=== PATIENT | male | born 1980 | race Caucasian/White ===

== ENCOUNTER 2016-09-12 01:03 | Observation (INO) | payer OTHER ==
[2016-09-12] MEDS ORDERED: Aspirin Low Dose CHEW TAB* 81 MG PO ONE (01:16)
[2016-09-12 01:49] LABS: Hematocrit 43 % (42-52); Hemoglobin 14.7 g/dl (14.0-18.0); Mean Corpuscular HGB Conc 34 g/dl (31-36); Mean Corpuscular Hemoglobin 29 pg (27-31); Mean Corpuscular Volume 84 fL (80-94); Mean Platelet Volume 9 um3 (7.4-10.4); Red Blood Count 5.12 10^6/ul (4.0-5.4); Red Cell Distribution Width 12 % (10.5-15); White Blood Count 12.2 10^3/ul (3.5-10.8)
[2016-09-12 01:50] LABS: Add Diff/Slide Review? Slide Review Added
[2016-09-12 02:08] LABS: Albumin 4.4 g/dL (3.2-5.2); BUN/Creatinine Ratio 16.3 (8-20); Calcium 10.1 mg/dL (8.6-10.3); EGFR African American 121.1 (>60); EGFR Non-African American 94.2 (>60); Globulin 2.9 g/dL (2-4); Potassium 4.1 mmol/L (3.5-5.0); Total Bilirubin 1.2 mg/dL (0.2-1.0); Total Protein 7.3 g/dL (6.4-8.9)
[2016-09-12 02:15] LABS: Neutrophil % 87 % (38-83); Reactive Lymph % 3 % (0-6); Troponin I 0.05 ng/mL (<0.04)
[2016-09-12 02:16] LABS: RBC Morphology Normal (Normal)
[2016-09-12] MEDS ORDERED: levETIRAcetam TAB* 500 MG PO ONE (02:36)
--- NOTE | 2016-09-12 02:40 | HP ---
H&P (Free Text) History and Physical: PCP: none Date/Time of Evaluation: 09/12/2016 0240 CC: chest pain HPI: Mr Sauer is a 36YO male HX TBI, ataxia, & seizure disorder who was walking in the snow from [facility] to [facility] when he developed R-sided mildly sharp chest pain that moved to the L-side, but was non-radiating. He had mild SOB & nausea, but no palpitations or light-headedness. The pain was worse with inspiration. He has no HX of similar. ED evaluation shows a benign ECG. Negative CXR. Labs are notable for WBCs of 12k 77% neutrophils, troponin of 0.05, and a negative D-dimer. While in the ED he had a sudden burst of anger when he asked an aide for an emesis basin and she have him a blue emesis bag which he then threw on the floor apparently being unsatisfied with it. The aide turned and left as he was yelling calling her a racist claiming discrimination for being disabled. 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 Bupropion HCl [Wellbutrin Sr] 200 mg PO 09/12/16 Divalproex Sodium [Depakote] 500 mg PO 09/12/16 Keppra 500 09/12/16 Levothyroxine TAB* [Synthroid TAB*] 75 mcg PO DAILY 09/12/16 SocHx: 1/2PPD cigarettes, occasional cigar, occasional alcohol, HX cocaine & marijuana abuse; lives in a motel, released from nursing home late last year; full code FamHx: no early-onset CAD/CVA ROS: as above, otherwise reviewed and all were negative Constitutional: NAD, normally developed, well-nourished, overweight white male vitals: Vital Signs Temp 37.6 C 09/12/16 01:11 Pulse 98 09/12/16 01:15 Resp 21 09/12/16 01:11 BP 130/82 09/12/16 01:11 Pulse Ox 99 09/12/16 01:11 Intake & Output 09/11/16 09/11/16 09/12/16 11:59 23:59 11:59 Weight 95.254 kg HEENM: atraumatic; sclera/conjunctiva: non-icteric/clear; hearing: clinically intact; oropharynx: clear Neck: soft tissue: non-tender; thyroid: normal Pulmonary: clear to auscultation bilaterally, good aeration, no accessory muscle use CV: RR/RR, normal S1S2, no carotid bruit, no jugular venous distention, 2+ B DP/ PT, no edema Abdominal: soft, non-distended, non-tender, no rebound/guarding/rigidity, normoactive bowel sounds, no hepatosplenomegaly or masses, no costovertebral angle tenderness Musculoskeletal: general: grossly intact Integumental: normal appearance and texture of exposed skin Neurological coordination BUE tremor & ataxic movements Psychiatric orientation: AA&O to PPS affect: calm mood: cooperative eye contact: good content: reliable responses: timely insight: fair Testing: Lab Results 09/12/16 09/12/16 09/12/16 Range/Units 01:30 01:30 01:30 WBC 12.2 H (3.5-10.8) 10^3/ul RBC 5.12 (4.0-5.4) 10^6/ul Hgb 14.7 (14.0-18.0) g/dl Hct 43 (42-52) % MCV 84 (80-94) fL MCH 29 (27-31) pg MCHC 34 (31-36) g/dl RDW 12 (10.5-15) % Plt Count 174 (150-450) 10^3/ul MPV 9 (7.4-10.4) um3 Neut % (Auto) 77.8 (38-83) % Lymph % (Auto) 12.1 L (25-47) % Swisher % (Auto) 9.7 H (1-9) % Eos % (Auto) 0.1 (0-6) % Baso % (Auto) 0.3 (0-2) % Absolute Neuts (auto) 9.5 H (1.5-7.7) 10^3/ul Absolute Lymphs (auto) 1.5 (1.0-4.8) 10^3/ul Absolute Monos (auto) 1.2 H (0-0.8) 10^3/ul Absolute Eos (auto) 0 (0-0.6) 10^3/ul Absolute Basos (auto) 0 (0-0.2) 10^3/ul Absolute Nucleated RBC 0.01 10^3/ul Neutrophils % 87 H (38-83) % Lymphocytes % 5 L (25-47) % Reactive Lymphs % 3 (0-6) % Monocytes % 5 (0-13) % Nucleated RBC % 0 Normal RBC Morphology Normal (Normal) D-Dimer, Quantitative < 200 (Less Than 230) ng/mL Sodium 134 (133-145) mmol/L Potassium 4.1 (3.5-5.0) mmol/L Chloride 98 L (101-111) mmol/L Carbon Dioxide 27 (22-32) mmol/L Anion Gap 9 (2-11) mmol/L BUN 15 (6-24) mg/dL Creatinine 0.92 (0.67-1.17) mg/dL Est GFR ( Amer) 121.1 (>60) Est GFR (Non-Af Amer) 94.2 (>60) BUN/Creatinine Ratio 16.3 (8-20) Glucose 80 (70-100) mg/dL Lactic Acid (0.5-2.0) mmol/L Calcium 10.1 (8.6-10.3) mg/dL Total Bilirubin 1.20 H (0.2-1.0) mg/dL AST 24 (13-39) U/L ALT 14 (7-52) U/L Alkaline Phosphatase 49 (34-104) U/L Troponin I 0.05 H* (<0.04) ng/mL B-Natriuretic Peptide ( - 100) pg/mL Total Protein 7.3 (6.4-8.9) g/dL Albumin 4.4 (3.2-5.2) g/dL Globulin 2.9 (2-4) g/dL Albumin/Globulin Ratio 1.5 (1-3) 09/12/16 09/12/16 Range/Units 01:30 01:30 WBC (3.5-10.8) 10^3/ul RBC (4.0-5.4) 10^6/ul Hgb (14.0-18.0) g/dl Hct (42-52) % MCV (80-94) fL MCH (27-31) pg MCHC (31-36) g/dl RDW (10.5-15) % Plt Count (150-450) 10^3/ul MPV (7.4-10.4) um3 Neut % (Auto) (38-83) % Lymph % (Auto) (25-47) % Swisher % (Auto) (1-9) % Eos % (Auto) (0-6) % Baso % (Auto) (0-2) % Absolute Neuts (auto) (1.5-7.7) 10^3/ul Absolute Lymphs (auto) (1.0-4.8) 10^3/ul Absolute Monos (auto) (0-0.8) 10^3/ul Absolute Eos (auto) (0-0.6) 10^3/ul Absolute Basos (auto) (0-0.2) 10^3/ul Absolute Nucleated RBC 10^3/ul Neutrophils % (38-83) % Lymphocytes % (25-47) % Reactive Lymphs % (0-6) % Monocytes % (0-13) % Nucleated RBC % Normal RBC Morphology (Normal) D-Dimer, Quantitative (Less Than 230) ng/mL Sodium (133-145) mmol/L Potassium (3.5-5.0) mmol/L Chloride (101-111) mmol/L Carbon Dioxide (22-32) mmol/L Anion Gap (2-11) mmol/L BUN (6-24) mg/dL Creatinine (0.67-1.17) mg/dL Est GFR ( Amer) (>60) Est GFR (Non-Af Amer) (>60) BUN/Creatinine Ratio (8-20) Glucose (70-100) mg/dL Lactic Acid 1.4 (0.5-2.0) mmol/L Calcium (8.6-10.3) mg/dL Total Bilirubin (0.2-1.0) mg/dL AST (13-39) U/L ALT (7-52) U/L Alkaline Phosphatase (34-104) U/L Troponin I (<0.04) ng/mL B-Natriuretic Peptide 16 ( - 100) pg/mL Total Protein (6.4-8.9) g/dL Albumin (3.2-5.2) g/dL Globulin (2-4) g/dL Albumin/Globulin Ratio (1-3) ECG, personally reviewed: NSR rate 93, no ischemia CXR, personally reviewed: no acute process Impression: 36YO male HX TBI/8month coma, seizure disorder presents with exertional chest pain & elevated troponin DIAGNOSIS & PLAN Primary chest pain r/o ACS : aspirin : no beta cedric 2nd cocaine : supplemental oxygen : trend troponin : telemetry : if no significant elevation in troponin or ECG changes, would not pursue inpatient stress test : supportive care Secondary TBI w/ ataxia : no acute issues seizure disorder : continue levetiracetam & divalproex once reconciled hypothyroidism : continue levothyroxine once reconciled Admission Rational: CDU observation for r/o ACS DVTp: ISABELLE Code Status: full
[2016-09-12] MEDS ORDERED: Nicotine Inhaler* 10 MG AMP INH PRN (02:56)
[2016-09-12] MEDS ORDERED: Albuterol 2.5 MG/3 ML NEB.SOL* (0.083%) INH PRN (03:56)
[2016-09-12] MEDS ORDERED: Acetaminophen TAB* 325 MG PO PRN (03:56)
[2016-09-12] MEDS ORDERED: Mouth Piece, Nicotine* 1 EACH CARTRIDGE INH ONE (04:00)
[2016-09-12 04:26] VITALS: BP 100/60
[2016-09-12 05:41] LABS: Hematocrit 41 % (42-52); Hemoglobin 14.2 g/dl (14.0-18.0); Mean Corpuscular HGB Conc 35 g/dl (31-36); Mean Corpuscular Hemoglobin 29 pg (27-31); Mean Corpuscular Volume 83 fL (80-94); Mean Platelet Volume 9 um3 (7.4-10.4); Red Blood Count 4.91 10^6/ul (4.0-5.4); Red Cell Distribution Width 13 % (10.5-15); White Blood Count 10.6 10^3/ul (3.5-10.8)
--- NOTE | 2016-09-12 07:55 | RAD ---
HISTORY: Chest pain, cough, CHF, pneumonia COMPARISONS: None VIEWS: 2: Frontal dual-energy and lateral views of the chest. FINDINGS: CARDIOMEDIASTINAL SILHOUETTE: The cardiomediastinal silhouette is normal. MONTRELL: The montrell are normal. PLEURA: The costophrenic angles are sharp. No pleural abnormalities are noted. LUNG PARENCHYMA: The lungs are clear. ABDOMEN: The upper abdomen is clear. There is no subphrenic gas. BONES AND SOFT TISSUES: No bone or soft tissue abnormalities are noted. OTHER: None. IMPRESSION: NO ACTIVE CARDIOPULMONARY DISEASE.
[2016-09-12] MEDS ORDERED: Aspirin Low Dose CHEW TAB* 81 MG PO SCH (09:00)
--- NOTE | 2016-09-12 09:26 | PN ---
Subjective Date of Service: 09/12/16 Interval History: The patient was very upset before I entered the room. Two hospital security guards were standing outside his room. He complained about not getting eggs for breakfast (his tray hadn't arrived yet) and that he was being discriminated against. Objective Active Medications: Acetaminophen (Tylenol Tab*) 650 mg PO Q6H PRN PRN Reason: FEVER/PAIN Albuterol (Ventolin 2.5 Mg/3 Ml Neb.Danica*) 2.5 mg INH Q2H PRN PRN Reason: SOB/WHEEZING Aspirin (Aspirin Low Dose Tab*) 81 mg PO DAILY KAMRAN Nicotine (Nicotine Inhaler*) 10 mg INH Q2H PRN PRN Reason: CRAVING Last Admin: 09/12/16 03:41 Dose: 10 mg Vital Signs 09/12/16 09/12/16 09/12/16 02:30 03:00 03:55 Temperature 97.7 F Pulse Rate 85 82 86 Respiratory 29 20 Rate Blood Pressure 93/48 97/76 100/60 (mmHg) O2 Sat by Pulse 94 94 94 Oximetry Oxygen Devices in Use Now: None Appearance: Alert, standing in his room. Agitated and angry. Neurological: Alert and Oriented x 3, NL Sensation, - - Ataxic in arms and legs. Result Diagrams: 09/12/16 05:24 09/12/16 01:30 Assess/Plan/Problems-Billing Assessment: - Patient Problems (1) Chest pain Current Visit: Yes Status: Acute Code(s): R07.9 - CHEST PAIN, UNSPECIFIED SNOMED Code(s): 15291957 Comment: Early repolarization on two ECG's. Troponins 0.05, 0.03, 0.03. Doubt sx's are cardiac in origin but should have outpt fup. Unfortunately he stated he didn't have a PCP and wouldn't continue the conversation along the lines of his fup. He is signing out AMA. (2) TBI (traumatic brain injury) Current Visit: Yes Status: Acute Code(s): S06.9X9A - UNSP INTRACRANIAL INJURY W LOC OF UNSP DURATION, INIT SNOMED Code(s): 282629452 Comment: Ataxia, seizure disorder, irritability. Status and Disposition: Pt signed out AMA.
[2016-09-12 11:12] LABS: TSH (Thyroid Stimulating Horm) 0.1 mcIU/mL (0.34-5.60)
--- NOTE | 2016-09-12 23:18 | DS ---
DISCHARGE SUMMARY: DATE OF ADMISSION: DATE OF DISCHARGE: 09/12/16 HISTORY: This is a 36-year-old man who was walking in heavy snow from [facility] [address] [facility] [address] [facility] [address] to [facility] and developed right-sided mildly sharp chest pain that moved to the left side. It was nonradiating. The history was detailed in the admission note. The patient was admitted to the telemetry unit. EKGs were consistent with early repolarization, he had two of them, they were certainly not diagnostic of coronary disease by any means. He had 3 troponin levels which were 0.05, 0.03, and 0.03. When I went to see him in the morning, two security personnel were already standing outside the room. He was standing by the bed very agitated and angry. He was upset he did not get eggs for breakfast. His breakfast tray, in fact, not even been delivered yet as this was a little early. He stated he had no primary care physician and all his medications were through the mental health clinic. He was not interested in discussing followup plans with me at all. The patient signed out against medical advice. FINAL DIAGNOSES: 1. Chest pain. 2. Traumatic brain injury with seizure disorder, ataxia, and irritability. DISCHARGE MEDICATIONS: 1. Levothyroxine 75 mcg daily. 2. Levetiracetam as prescribed. 3. Divalproex as prescribed. 4. Bupropion as prescribed. [id number]/[facility] #: [id number] MTDD
--- NOTE | 2016-09-14 08:29 | ED ---
cesario Castaneda Timothy, scribed for Chris Zee MD on 09/12/16 at 0117 . HPI Chest Pain - HPI Summary HPI Summary: Chester Gruber Jr. is a 36 yo male presenting to [facility] with CP. He states he noticed his CP while walking from [facility] [employer] to his hotel tonight at 0000. He state he does not have a Hx of chest discomfort. Pt states the pain started on the right side and moved to the left side. He states he is in pain when he is walking and breathing, and coughing. He denies any radiation to his shoulder blades or down his arm. He states he began to sweat while shoveling. He denies nausea. He was released from retirement in 05/2016. He is on keppra for seizure. He occasionally uses marijuana. His MHx includes seizure, tobacco use. - History of Current Complaint Time Seen by Provider: 09/12/16 01:12 Hx Obtained From: Patient Onset/Duration: Started Hours Ago, Still Present Time of Onset: 00:00 Timing: Constant Initial Severity: Moderate Current Severity: Moderate Pain Intensity: 0 Pain Scale Used: 0-10 Numeric Chest Pain Location: Diffuse Chest Pain Radiates: No Aggravating Factor(s): Exertion, Deep Breaths, Other: - cough Associated Signs and Symptoms: Positive: Chest Pain, Diaphoresis, Nonproductive Cough. Negative: Nausea, Abdominal Pain - Allergy/Home Medications Allergies/Adverse Reactions: Allergies Allergy/AdvReac Type Severity Reaction Status Date / Time No Known Allergies Allergy Verified 09/12/16 01:17 Home Medications: Home Medications Bupropion HCl [Wellbutrin Sr] 200 mg PO 09/12/16 [History] Divalproex Sodium [Depakote] 500 mg PO 09/12/16 [History] Keppra 500 09/12/16 [History] Levothyroxine TAB* [Synthroid TAB*] 75 mcg PO DAILY 09/12/16 [History Confirmed 09/12/16] PMH/Surg Hx/FS Hx/Imm Hx Neurological History: Reports: Hx Seizures - Family History Known Family History: Negative: Cardiac Disease - Social History Hx Substance Use: Yes Substance Use Type: Reports: Marijuana Hx Tobacco Use: Yes Smoking Status (MU): Current Some Day Smoker Review of Systems Positive: Skin Diaphoresis Eyes: Negative ENT: Negative Positive: Chest Pain Positive: Cough Gastrointestinal: Negative Negative: Nausea Genitourinary: Negative Musculoskeletal: Negative Skin: Negative Neurological: Negative Psychological: Normal All Other Systems Reviewed And Are Negative: Yes Physical Exam - Summary Physical Exam Summary: The patient is well-nourished in no acute distress and in no acute pain. Pt has a twist at rest, and exhibited pressured pseech. The skin is warm and dry and skin color reflects adequate perfusion. Good skin turgor, no cyanosis HEENT: The head is normocephalic and atraumatic. The pupils are equal and reactive. The conjunctivae are clear and without drainage. Nares are patent and without drainage. Mouth reveals moist mucous membranes and the throat is without erythema and exudate. The external ears are intact. The ear canals are patent and without drainage. The tympanic membranes are intact. Neck is supple with full range of motion and non-tender. There are no carotid bruits. There is no neck vein distension. Respiratory: Chest is non-tender. Lungs are clear to auscultation and breath sounds are symmetrical and equal. No rales, rhonchi or wheezes. Cardiovascular: Heart is regular rate and rhythm. There is no murmur or rub auscultated. There is no peripheral edema and pulses are symmetrical and equal. Abdomen: The abdomen is soft and non-tender. There are normal bowel sounds heard in all four quadrants and there is no organomegaly palpated. Musculoskeletal: There is no back pain noted. Extremities are non-tender with full range of motion. There is good capillary refill. There is no peripheral edema or calf tenderness elicited. Neurological: Patient is alert and oriented to person, place and time. The patient has symmetrical motor strength in all four extremities. Cranial nerves are grossly intact. Deep tendon reflexes are symmetrical and equal in all four extremities. Psychiatric: The patient has an appropriate affect and does not exhibit any anxiety or depression. Triage Information Reviewed: Yes Vital Signs On Initial Exam: Initial Vital Signs Temp 99.6 F 09/12/16 01:11 Pulse 98 09/12/16 01:11 Resp 21 09/12/16 01:11 BP 130/82 09/12/16 01:11 Pulse Ox 99 09/12/16 01:11 Vital Signs Reviewed: Yes Diagnostics - Vital Signs Vital Signs Temp Pulse Resp BP Pulse Ox 09/12/16 01:15 98 09/12/16 01:11 99.6 F 98 21 130/82 99 - Laboratory Lab Results: Lab Results 09/12/16 09/12/16 09/12/16 Range/Units 01:30 01:30 01:30 WBC 12.2 H (3.5-10.8) 10^3/ul RBC 5.12 (4.0-5.4) 10^6/ul Hgb 14.7 (14.0-18.0) g/dl Hct 43 (42-52) % MCV 84 (80-94) fL MCH 29 (27-31) pg MCHC 34 (31-36) g/dl RDW 12 (10.5-15) % Plt Count 174 (150-450) 10^3/ul MPV 9 (7.4-10.4) um3 Neut % (Auto) 77.8 (38-83) % Lymph % (Auto) 12.1 L (25-47) % Starr % (Auto) 9.7 H (1-9) % Eos % (Auto) 0.1 (0-6) % Baso % (Auto) 0.3 (0-2) % Absolute Neuts (auto) 9.5 H (1.5-7.7) 10^3/ul Absolute Lymphs (auto) 1.5 (1.0-4.8) 10^3/ul Absolute Monos (auto) 1.2 H (0-0.8) 10^3/ul Absolute Eos (auto) 0 (0-0.6) 10^3/ul Absolute Basos (auto) 0 (0-0.2) 10^3/ul Absolute Nucleated RBC 0.01 10^3/ul Neutrophils % 87 H (38-83) % Lymphocytes % 5 L (25-47) % Reactive Lymphs % 3 (0-6) % Monocytes % 5 (0-13) % Nucleated RBC % 0 Normal RBC Morphology Normal (Normal) D-Dimer, Quantitative < 200 (Less Than 230) ng/mL Sodium 134 (133-145) mmol/L Potassium 4.1 (3.5-5.0) mmol/L Chloride 98 L (101-111) mmol/L Carbon Dioxide 27 (22-32) mmol/L Anion Gap 9 (2-11) mmol/L BUN 15 (6-24) mg/dL Creatinine 0.92 (0.67-1.17) mg/dL Est GFR ( Amer) 121.1 (>60) Est GFR (Non-Af Amer) 94.2 (>60) BUN/Creatinine Ratio 16.3 (8-20) Glucose 80 (70-100) mg/dL Lactic Acid (0.5-2.0) mmol/L Calcium 10.1 (8.6-10.3) mg/dL Total Bilirubin 1.20 H (0.2-1.0) mg/dL AST 24 (13-39) U/L ALT 14 (7-52) U/L Alkaline Phosphatase 49 (34-104) U/L Troponin I 0.05 H* (<0.04) ng/mL B-Natriuretic Peptide ( - 100) pg/mL Total Protein 7.3 (6.4-8.9) g/dL Albumin 4.4 (3.2-5.2) g/dL Globulin 2.9 (2-4) g/dL Albumin/Globulin Ratio 1.5 (1-3) TSH 0.10 L (0.34-5.60) mcIU/mL 09/12/16 09/12/16 Range/Units 01:30 01:30 WBC (3.5-10.8) 10^3/ul RBC (4.0-5.4) 10^6/ul Hgb (14.0-18.0) g/dl Hct (42-52) % MCV (80-94) fL MCH (27-31) pg MCHC (31-36) g/dl RDW (10.5-15) % Plt Count (150-450) 10^3/ul MPV (7.4-10.4) um3 Neut % (Auto) (38-83) % Lymph % (Auto) (25-47) % Starr % (Auto) (1-9) % Eos % (Auto) (0-6) % Baso % (Auto) (0-2) % Absolute Neuts (auto) (1.5-7.7) 10^3/ul Absolute Lymphs (auto) (1.0-4.8) 10^3/ul Absolute Monos (auto) (0-0.8) 10^3/ul Absolute Eos (auto) (0-0.6) 10^3/ul Absolute Basos (auto) (0-0.2) 10^3/ul Absolute Nucleated RBC 10^3/ul Neutrophils % (38-83) % Lymphocytes % (25-47) % Reactive Lymphs % (0-6) % Monocytes % (0-13) % Nucleated RBC % Normal RBC Morphology (Normal) D-Dimer, Quantitative (Less Than 230) ng/mL Sodium (133-145) mmol/L Potassium (3.5-5.0) mmol/L Chloride (101-111) mmol/L Carbon Dioxide (22-32) mmol/L Anion Gap (2-11) mmol/L BUN (6-24) mg/dL Creatinine (0.67-1.17) mg/dL Est GFR ( Amer) (>60) Est GFR (Non-Af Amer) (>60) BUN/Creatinine Ratio (8-20) Glucose (70-100) mg/dL Lactic Acid 1.4 (0.5-2.0) mmol/L Calcium (8.6-10.3) mg/dL Total Bilirubin (0.2-1.0) mg/dL AST (13-39) U/L ALT (7-52) U/L Alkaline Phosphatase (34-104) U/L Troponin I (<0.04) ng/mL B-Natriuretic Peptide 16 ( - 100) pg/mL Total Protein (6.4-8.9) g/dL Albumin (3.2-5.2) g/dL Globulin (2-4) g/dL Albumin/Globulin Ratio (1-3) TSH (0.34-5.60) mcIU/mL Result Diagrams: 09/12/16 05:24 09/12/16 01:30 Lab Statement: Any lab studies that have been ordered have been reviewed, and results considered in the medical decision making process. - Radiology CXR Xray Interpretation: No Acute Changes - No acute disease, COPD changes Radiology Interpretation Completed By: ED Physician - EKG 0122 Cardiac Rate: NL - 93 BPM EKG Interpretation: Rate of 93 BPM, early repolarizations. Re-Evaluation - Re-Evaluation First Eval Re-Evaluation Time: 02:19 Change: Unchanged Comment: Reviewed Pt lab work. Pt is agreeabke to current course of Tx. Chest Pain Course/Dx - Course Assessment/Plan: Will Sauer is a 36 yo male presenting to [facility] with CP switching from his right to left side after walking tonight in the cold. After clinical examination, review of his EKG, review of his negative CXR, and review of his lab work, as well as discussion with Dr. Hope, he will be admitted to [facility] for further evaluation and treatment. - Chest Pain Differential Diagnosis/HQI/PQRI: Acute SD, ACS - Diagnoses Provider Diagnoses: Exertional chest pain - Provider Notifications Discussed Care Of Patient With: 0223 - Dr. Hope (hospitalist) - discussed Pt condition, agrees to admit Pt. Discharge - Discharge Plan Condition: Stable Disposition: ADMITTED TO [facility] The documentation as recorded by the cesario zhu Timothy accurately reflects the service I personally performed and the decisions made by me, Chris Zee MD.
== END 2016-09-12 09:20 | disposition left against medical advice (07) ==
LOC: ED 01:03 → MERGE 02:25 → MEDTELE 02:25 → INTOOBSV 02:25
PROVIDERS: ADMIT Hospitalist; ATTEND Internal Medicine
DX: R07.9 Chest pain, unspecified (principal); R06.02 Shortness of breath; Z87.820 Personal history of traumatic brain injury; R27.0 Ataxia, unspecified; G40.909 Epilepsy, unspecified, not intractable, without status epilepticus; E03.9 Hypothyroidism, unspecified; I49.9 Cardiac arrhythmia, unspecified; Z79.899 Other long term (current) drug therapy
CPT/HCPCS: 36415; 71020; 80053; 83605; 83880; 84443; 84484; 85025; 85027; 85379; 93005; 99285; A9270-GY; G0378

== ENCOUNTER 2016-09-22 14:40 | Emergency (ER) | payer OTHER ==
--- NOTE | 2016-09-22 15:16 | ED ---
Lower Extremity - HPI Summary HPI Summary: [facility]Stop Reference #: [id number] - History of Current Complaint Chief Complaint: EDExtremityLower Stated Complaint: LT KNEE COMPLAINT Time Seen by Provider: 09/22/16 14:51 Hx Obtained From: Patient Mechanism Of Injury: Unknown - started after shoveling snow 4-5 days ago. no fall. Onset of Pain: Hours - seemed to start a few hours later and was off and on for few days. today hurts more and requests percocet for pain. Onset/Duration: Days Severity Initially: Mild Severity Currently: Moderate Pain Intensity: 5 Timing: Constant Location: Is Discrete @ - L medial knee Character Of Pain: Dull, Aching Associated Signs And Symptoms: Positive: Swelling. Negative: Redness, Bruising , Fever Aggravating Factor(s): Ambulation Alleviating Factor(s): Rest Able to Bear Weight: Yes - Allergies/Home Medications Allergies/Adverse Reactions: Allergies Allergy/AdvReac Type Severity Reaction Status Date / Time No Known Allergies Allergy Verified 01/31/14 05:29 PMH/Surg Hx/FS Hx/Imm Hx Previously Healthy: Yes Endocrine/Hematology History: Denies: Hx Blood Disorders Cardiovascular History: Denies: Hx Coronary Artery Disease Respiratory History: Denies: Hx Asthma Musculoskeletal History: Denies: Hx Arthritis Neurological History: Reports: Hx Seizures, Other Neuro Impairments/Disorders - TBI Psychiatric History: Reports: Hx Depression, Hx Substance Abuse - heroin, marijuana - Surgical History Surgery Procedure, Year, and Place: metal plates in bilateral lower jaw - Immunization History Immunizations Up to Date: Yes - was just released from nursing home Infectious Disease History: No Infectious Disease History: Denies: Hx Clostridium Difficile, Hx Hepatitis, Hx Human Immunodeficiency Virus (HIV), Hx of Known/Suspected MRSA, Hx Shingles, Hx Tuberculosis, Hx Known/ Suspected VRE, Hx Known/Suspected VRSA, History Other Infectious Disease, Traveled Outside the [place] in Last 30 Days - Family History Known Family History: Negative: Cardiac Disease - Social History Occupation: Unemployed, Disabled Lives: Alone Alcohol Use: None Hx Substance Use: Yes Substance Use Type: Reports: Cocaine, Marijuana, Heroin Substance Use Comment - Amount & Last Used: PT STATES HEROINE, MARIJUANA AND COCAINE USE; Uncertain amount or frequency Hx Tobacco Use: Yes Smoking Status (MU): Heavy Every Day Tobacco Smoker Type: Cigarettes Have You Smoked in the Last Year: Yes Cessation Counseling: Patient Advised to Stop Review of Systems Constitutional: Negative Negative: Fever, Chills Cardiovascular: Negative Negative: Chest Pain Respiratory: Negative Negative: Shortness Of Breath Gastrointestinal: Negative Musculoskeletal: Other - L knee pain Skin: Negative Neurological: Other - nothing new Psychological: Normal All Other Systems Reviewed And Are Negative: Yes Physical Exam Triage Information Reviewed: Yes Vital Signs On Initial Exam: Initial Vitals Temp Pulse Resp BP Pulse Ox 97.6 F 99 16 136/84 100 09/22/16 14:42 09/22/16 14:42 09/22/16 14:42 09/22/16 14:42 09/22/16 14:42 Vital Signs Reviewed: Yes Appearance: Positive: Well-Appearing, No Pain Distress, Well-Nourished - rolling around room in wheelchair, talking to people Skin: Positive: Warm, Skin Color Reflects Adequate Perfusion Respiratory/Lung Sounds: Positive: Clear to Auscultation Cardiovascular: Positive: Normal Musculoskeletal: Positive: Strength/ROM Intact, Pain @ - L medial knee. no swelling, redness or ecchymosis. minor tenderness with deep palp L med knee full flexion and ext. neg ant/post drawer. Negative: Naya Sign Left Neurological: Positive: Normal - baseline for patient Psychiatric: Positive: Normal, Other - persistent about getting Rx for percocet 10. states anaprox, ibuprofen and tylenol do not work. - Calcium Coma Scale Coma Scale Total: 15 Diagnostics - Vital Signs Vital Signs Temp Pulse Resp BP Pulse Ox 09/22/16 14:42 97.6 F 99 16 136/84 100 - Laboratory Lab Statement: Any lab studies that have been ordered have been reviewed, and results considered in the medical decision making process. Lower Extremity Course/Dx - Diagnoses Differential Diagnosis/HQI/PQRI: Positive: Bursitis, Contusion, Gout, Infection , Sprain, Strain Provider Diagnoses: Left knee pain Discharge - Discharge Plan Condition: Stable Disposition: HOME Prescriptions: traMADol TAB* [Ultram*] 50 mg PO Q12H PRN #6 tab MDD 2 PRN Reason: Pain Patient Education Materials: Knee Pain (ED) Referrals: No Primary Care Phys,NOPCP [Primary Care Provider] - Jaxson Edwards MD [Medical Doctor] - 2 Days (Call Saturday09/24/16) Additional Instructions: rest leg and use knee splint use Tramadol for pain relief as prescribed
[2016-09-22] MEDS ORDERED: Ketorolac INJ* 60 MG/2 ML VIAL IM ONE (15:48)
[2016-09-22 15:59] VITALS: BP 130/82
== END 2016-09-22 15:58 | disposition home or self-care (01) ==
LOC: ED 14:40
DX: M25.562 Pain in left knee (principal)
CPT/HCPCS: 96372; 99282; J1885

== ENCOUNTER 2017-10-04 22:16 | Emergency (ER) | payer MEDICAID ==
[2017-10-05] MEDS ORDERED: Ketorolac INJ* 60 MG/2 ML VIAL IM ONE (00:14)
[2017-10-05] MEDS ORDERED: ALPRAZolam TAB* 0.5 MG PO ONE (00:15)
[2017-10-05 00:55] LABS: ABS Basophils 0.1 10^3/ul (0-0.2); ABS Eosinophils 0.4 10^3/ul (0-0.6); ABS Lymphocytes 2.9 10^3/ul (1.0-4.8); ABS Monocytes 1.1 10^3/ul (0-0.8); ABS Neutrophils 4.5 10^3/ul (1.5-7.7); ABS Nucleated RBC 0 10^3/ul; Eosinophil % 4.6 % (0-6); Hematocrit 43 % (42-52); Hemoglobin 15.1 g/dl (14.0-18.0); Lymphocyte % 32.5 % (25-47); Mean Corpuscular HGB Conc 35 g/dl (31-36); Mean Corpuscular Hemoglobin 31 pg (27-31); Mean Corpuscular Volume 89 fL (80-94); Nucleated Red Blood Cells % 0.2; Platelet Count 202 10^3/ul (150-450); Red Blood Count 4.86 10^6/ul (4.0-5.4); Red Cell Distribution Width 13 % (10.5-15)
[2017-10-05 01:06] LABS: EGFR Non-African American 137.4 (>60)
--- NOTE | 2017-10-05 02:16 | ED ---
Krunal Castaneda Tecjoon, scribed for Piotr Grossman MD on 10/05/17 at 0014 . HPI Chest Pain - HPI Summary HPI Summary: This patient is a 37 year old male BIBA to [facility] with a chief complaint of left sided chest pain since a few hours ago. Patient is returning from a week ago, exhibiting similar symptoms. Patient states the sx came back today. The pain is rated 6/10 in severity. Symptoms aggravated by deep breaths. Symptoms alleviated by nothing. The patient treated the sx with pump and naproxen. Patient additionally reports RUE pain and lightheadedness. - History of Current Complaint Chief Complaint: EDChestWallPain Time Seen by Provider: 10/05/17 00:06 Hx Obtained From: Patient Onset/Duration: Started Hours Ago, Still Present Timing: Constant Initial Severity: Moderate Current Severity: Moderate Pain Intensity: 6 Pain Scale Used: 0-10 Numeric Chest Pain Location: Left Anterior Aggravating Factor(s): Deep Breaths Alleviating Factor(s): Nothing Associated Signs and Symptoms: Positive: Other: - RUE pain and lightheadedness - Allergy/Home Medications Allergies/Adverse Reactions: Allergies Allergy/AdvReac Type Severity Reaction Status Date / Time No Known Allergies Allergy Verified 10/04/17 22:31 PMH/Surg Hx/FS Hx/Imm Hx Previously Healthy: No Endocrine/Hematology History: Denies: Hx Blood Disorders Cardiovascular History: Denies: Hx Coronary Artery Disease Respiratory History: Denies: Hx Asthma Musculoskeletal History: Denies: Hx Arthritis Neurological History: Reports: Hx Seizures, Other Neuro Impairments/Disorders - TBI Psychiatric History: Reports: Hx Depression, Hx Substance Abuse - heroin, marijuana - Surgical History Surgery Procedure, Year, and Place: metal plates in bilateral lower jaw Infectious Disease History: No Infectious Disease History: Denies: Hx Clostridium Difficile, Hx Hepatitis, Hx Human Immunodeficiency Virus (HIV), Hx of Known/Suspected MRSA, Hx Shingles, Hx Tuberculosis, Hx Known/ Suspected VRE, Hx Known/Suspected VRSA, History Other Infectious Disease, Traveled Outside the [place] in Last 30 Days - Family History Known Family History: Negative: Cardiac Disease - Social History Lives: Alone Alcohol Use: None Hx Substance Use: Yes Substance Use Comment - Amount & Last Used: history of HEROINE, MARIJUANA AND COCAINE USE Hx Tobacco Use: Yes Smoking Status (MU): Heavy Every Day Tobacco Smoker Type: Cigarettes Have You Smoked in the Last Year: Yes Review of Systems Negative: Fever Positive: Chest Pain Positive: Other - RUE pain Neurological: Other - lightheadedness All Other Systems Reviewed And Are Negative: Yes Physical Exam - Summary Physical Exam Summary: VITAL SIGNS: Reviewed. GENERAL: Patient is a well-developed and nourished male who is lying comfortable in the stretcher. Patient is not in any acute respiratory distress. HEAD AND FACE: No signs of trauma. No ecchymosis, hematomas or skull depressions. No sinus tenderness. EYES: PERRLA, EOMI x 2, No injected conjunctiva, no nystagmus. EARS: Hearing grossly intact. Ear canals and tympanic membranes are within normal limits. MOUTH: Oropharynx within normal limits. NECK: Supple, trachea is midline, no adenopathy, no JVD, no carotid bruit, no c- spine tenderness, neck with full ROM. CHEST: Symmetric, no tenderness at palpation LUNGS: Clear to auscultation bilaterally. No wheezing or crackles. CVS: Regular rate and rhythm, S1 and S2 present, no murmurs or gallops appreciated. ABDOMEN: Soft, non-tender. No signs of distention. No rebound no guarding, and no masses palpated. Bowel sounds are normal. EXTREMITIES: FROM in all major joints, no edema, no cyanosis or clubbing. NEURO: Alert and oriented x 3. No acute neurological deficits. Speech is normal and follows commands. SKIN: Dry and warm Triage Information Reviewed: Yes Vital Signs On Initial Exam: Initial Vitals Temp Pulse Resp BP Pulse Ox 99.2 F 83 18 129/82 95 10/04/17 22:29 10/04/17 22:29 10/04/17 22:29 10/04/17 22:29 10/04/17 22:29 Vital Signs Reviewed: Yes Diagnostics - Vital Signs Vital Signs Temp Pulse Resp BP Pulse Ox 10/04/17 22:29 99.2 F 83 18 129/82 95 - Laboratory Result Diagrams: 10/05/17 00:35 10/05/17 00:35 Lab Statement: Any lab studies that have been ordered have been reviewed, and results considered in the medical decision making process. - Radiology CXR Xray Interpretation: No Acute Changes - CXR reveals, per radiologist, IMPRESSION : NO ACUTE PROCESS. ED physician has reviewed this radiology report. Radiology Interpretation Completed By: Radiologist - EKG 2217 Cardiac Rate: NL EKG Rhythm: Sinus Rhythm - 92 BPM EKG Interpretation: NSR (92 BPM), J-point elevation Chest Pain Course/Dx - Course Course Of Treatment: This patient is a 37 year old male BIBA to [facility] with a chief complaint of left sided chest pain since a few hours ago. Patient is returning from a week ago, exhibiting similar symptoms. An EKG, taken 2217, reveals NSR (92 BPM), J-point elevation. CXR reveals, per radiologist, IMPRESSION: NO ACUTE PROCESS. ED physician has reviewed this radiology report. Bloodwork Obtained. Test results with no significant abnormalities. In the ED course the patient was given Toradol, Xanax. Patient will be discharged with a dx of atypical chest pain. Patient is advised to follow up with PCP in 3 days to schedule a stress test. The patient is agreeable with this plan. - Diagnoses Provider Diagnoses: Atypical chest pain Discharge - Sign-Out/Discharge Documenting (check all that apply): Discharge - Discharge Plan Condition: Stable Disposition: HOME Patient Education Materials: Chest Pain (ED) Referrals: No Primary Care Phys,NOPCP [Primary Care Provider] - 3 Days [facility] [place]Outside] - 3 Days Additional Instructions: Please schedule a stress test with your primary care physician. Return to the ED for any new or worsening symptoms. The documentation as recorded by the Krunal zhu Tecjoon accurately reflects the service I personally performed and the decisions made by , Piotr Grossman MD.
[2017-10-05 02:53] VITALS: BP 124/78
--- NOTE | 2017-10-05 07:32 | RAD ---
INDICATION: Chest pain. COMPARISON: Comparison is made with a prior study from September 24, 2017. TECHNIQUE: A portable view of the chest was obtained. FINDINGS: Cardiac and mediastinal contours appear to be within normal limits. The lungs are underinflated and clear. No pleural effusion or pneumothorax is seen. IMPRESSION: NO EVIDENCE FOR ACUTE FINDING.
== END 2017-10-05 02:54 | disposition home or self-care (01) ==
LOC: ED 22:16
DX: R07.89 Other chest pain (principal); M79.601 Pain in right arm; F17.210 Nicotine dependence, cigarettes, uncomplicated; R42 Dizziness and giddiness
CPT/HCPCS: 36415; 71045; 80053; 82550; 84484; 85025; 93005; 96372; 99283; A9270-GY; J1885

== ENCOUNTER 2017-11-13 14:44 | Emergency (ER) | payer MEDICAID ==
[2017-11-13] MEDS ORDERED: Ketorolac INJ* 60 MG/2 ML VIAL IM ONE (17:20)
--- NOTE | 2017-11-13 17:39 | RAD ---
INDICATION: Left shoulder pain COMPARISON: None TECHNIQUE: Routine frontal, Y and axial views were obtained. FINDINGS: The bony structures, joint spaces, and soft tissues are normal for age. IMPRESSION: NO ACUTE BONY FINDINGS.
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
--- NOTE | 2017-11-13 17:40 | RAD ---
INDICATION: Neck pain COMPARISON: None TECHNIQUE: AP, lateral, and odontoid views were acquired FINDINGS: Bones: There are no acute bony findings. There are no significant osteoarthritic findings. Craniocervical junction: The odontoid and atlantodental interval are normal. Alignment: Normal Disc spaces: The disc spaces are well-maintained Soft tissues: The prevertebral soft tissues are normal. IMPRESSION: NEGATIVE EXAMINATION.
[2017-11-13 19:01] VITALS: BP 0/0
== END 2017-11-13 18:57 | disposition home or self-care (01) ==
LOC: ED 14:44
DX: R29.898 Other symptoms and signs involving the musculoskeletal system (principal); F17.210 Nicotine dependence, cigarettes, uncomplicated
CPT/HCPCS: 72040; 96372; 99284; J1885

== ENCOUNTER 2017-11-29 21:20 | Observation (INO) | payer OTHER ==
--- NOTE | 2017-11-29 22:08 | RAD ---
INDICATION: Cough and hypoxemia COMPARISON: Chest x-ray dated October 05, 2017 TECHNIQUE: PA and lateral views of the chest were obtained. FINDINGS: The heart and mediastinum are normal in size and contour. The lungs are grossly clear. There is no evidence of large pleural effusion. Visualized bones are normal for the patient's age. There is no radiographic evidence of free air beneath the diaphragm IMPRESSION: No radiographic evidence of acute cardiopulmonary disease.
[2017-11-29 22:40] LABS: ABS Basophils 0.1 10^3/ul (0-0.2); ABS Eosinophils 0.2 10^3/ul (0-0.6); ABS Lymphocytes 1.4 10^3/ul (1.0-4.8); ABS Monocytes 1.1 10^3/ul (0-0.8); ABS Neutrophils 11.1 10^3/ul (1.5-7.7); ABS Nucleated RBC 0 10^3/ul; Eosinophil % 1.1 % (0-6); Hematocrit 44 % (42-52); Hemoglobin 15.2 g/dl (14.0-18.0); Lymphocyte % 10.3 % (25-47); Mean Corpuscular HGB Conc 35 g/dl (31-36); Mean Corpuscular Hemoglobin 30 pg (27-31); Mean Corpuscular Volume 87 fL (80-94); Mean Platelet Volume 7.5 um3 (7.4-10.4); Nucleated Red Blood Cells % 0; Platelet Count 221 10^3/ul (150-450); Red Blood Count 5.04 10^6/ul (4.0-5.4); Red Cell Distribution Width 13 % (10.5-15); White Blood Count 13.9 10^3/ul (3.5-10.8)
[2017-11-30] MEDS ORDERED: Iohexol 350* (CONTRAST) 500 ML MDV IV ONE (00:24)
[2017-11-30] MEDS ORDERED: Azithromycin IV(*) 500 MG in NS 0.9% 250 ML* 250 ML IVPB ONE (01:18)
[2017-11-30] MEDS ORDERED: cefTRIAXone(*) 1 GM in NS 0.9% 50 ML* 50 ML IVPB ONE (01:18)
[2017-11-30] MEDS ORDERED: Ondansetron INJ* 2 MG/ML VIAL IV PRN (02:07)
[2017-11-30] MEDS ORDERED: Acetaminophen TAB* 325 MG PO PRN (02:07)
[2017-11-30] MEDS ORDERED: NS 0.9% 1000 ML* 1,000 ML IV SCH (02:15)
[2017-11-30] MEDS ORDERED: Enoxaparin(*) 40 MG/0.4 ML SYR SUBCUT SCH (03:00)
[2017-11-30 07:21] VITALS: BP 116/82
--- NOTE | 2017-11-30 08:16 | RAD ---
INDICATION: Hypoxemia, cough, abnormal d-dimer. COMPARISON: November 29, 2017 chest radiograph. TECHNIQUE: Multidetector CT images were obtained from the lung apices to the upper abdomen with 79 mL Omnipaque 350 IV contrast. Pulmonary angiogram protocol. Multiplanar reformation including with maximum intensity projection. REPORT: Mild patchy alveolar consolidation present at the RIGHT upper lobe and superior segment of the RIGHT lower lobe with more confluent consolidation at the central hilar portion of the RIGHT lower lobe extending to the medial basal segment. Negative for pleural effusions. Negative for pneumothorax. Negative for thoracic lymphadenopathy, cardiomegaly, or pericardial effusion. Normal diameter thoracic aorta. The CT pulmonary angiogram is moderately limited due to motion artifact. No compelling filling defects are identified from the main to the subsegmental pulmonary arteries to indicate presence of a pulmonary embolism. Unremarkable Limited images through the upper abdomen. Negative for suspicious thoracic osseous lesions. IMPRESSION: 1. Negative for pulmonary embolism. 2. RIGHT lung consolidation most confluent involving the infrahilar region extending to the medial basal segment of the RIGHT lower lobe most suspicious for pneumonia however imaging follow-up needed after therapy to exclude an underlying mass lesion.
[2017-11-30] MEDS ORDERED: buPROPion TAB* 100 MG PO SCH (09:00)
[2017-11-30] MEDS ORDERED: Divalproex DR TAB(*) 500 MG PO SCH (09:00)
[2017-11-30] MEDS ORDERED: levETIRAcetam TAB* 500 MG PO SCH (09:00)
--- NOTE | 2017-11-30 11:32 | HP ---
HISTORY AND PHYSICAL: DATE OF ADMISSION: 11/29/17 PRIMARY CARE PROVIDER: None. HEALTHCARE PROXY: The patient failed to identify. CODE STATUS: Full. CHIEF COMPLAINT: Suspected overdose. SOURCE OF INFORMATION: History obtained from interview with patient, discussion with ER physician, review of EMS, and discussion with nurse providing care. HISTORY OF PRESENT ILLNESS: This is a 37-year-old man, difficult historian, with past medical history including traumatic brain injury and a seizure disorder who per EMS notes, the patient knocked on a bystander's door and walked in and passed out. It was noted that a neighbor attempted to administer intranasal Narcan, and the patient became more responsive, although on further review, it is unclear if the was fully depressed and the patient received Narcan. The patient indicates at this time and to EMS that he had been sitting in the house of the neighbor and had been sleepy and not feeling well for the last couple of days and passed out at that time after knocking on the door. He vehemently denies overdosing on any medications, although did admit to the RN caring for him that he smoked K2 earlier in the day. Furthermore, he admits that he has been coughing for the last 3 or 4 days. It is unclear whether he has had fevers. He notes, "I don't care about any event" . He endorsed the EMS and this author chest pains earlier in the week but none now. When seen by this author, it was difficult to interact with, mostly wants to remain asleep, but easily arousable. When evaluated by the ED provider, he was noted to be 80% on room air, increased with oxygen, which prompted evaluation for underlying lung pathology and identification of pneumonia. REVIEW OF SYSTEMS: As per HPI, otherwise all other systems negative. PAST MEDICAL HISTORY: Include; 1. Traumatic brain injury. 2. Seizure disorder. 3. History of hypothyroidism. 4. Polysubstance abuse. SOCIAL HISTORY: Tobacco abuse 1 pack per day, history of cocaine and marijuana , K2. FAMILY HISTORY: Does not contribute at this time. ALLERGIES: No known drug allergies. MEDICATIONS: The patient contributes his home medication list, which includes, 1. Keppra 500 mg 3 times a day. 2. Depakote 500 mg twice a day. 3. Gabapentin, unknown dose. 4. Wellbutrin 150 mg twice daily. The patient is confident these are his doses; however, I am less confident that these are the correct doses. I have prescribed some of these medications, but they should be reconciled. PHYSICAL EXAMINATION GENERAL: Lying on his left side, dismissive. VITALS: When seen by this author, 128/76, heart rate is 79, respiratory rate is 16. He is actually 94% on room air. T-max 97.1. HEENT: Oropharynx is clear. LUNGS: Clear. HEART: He has a regular rate and rhythm. ABDOMEN: Soft, nontender, nondistended. EXTREMITIES: Warm and well perfused without clubbing, cyanosis or edema. He has less than 2-second cap refill. NEUROLOGIC: He has no apparent anxiety, agitation or depression. DIAGNOSTIC STUDIES/LAB DATA: Labs are reviewed, lactic acid 2.3, white blood cell count 13.9, 80% neutrophils, hemoglobin 15.2, and platelets 221. Data reviewed. CTA chest, impression: No large central pulmonary embolism. Moderate nonspecific right lower lobe perihilar mass like lung consolidation, most likely due to pneumonia. Mild perihilar, predominantly pulmonary edema or pneumonia. ASSESSMENT AND PLAN: This is a 37-year-old gentleman, presenting to the hospital after concern by bystanders for overdose and with pneumonia. 1. Overdose. The patient vehemently denies overdosing. He may or may not have received Narcan. He is currently arousable. Continue monitoring as appropriate. 2. Pneumonia. May be aspiration pneumonia, given history of potential overdose and drug use although community acquired also on the differential. Receiving ceftriaxone and azithromycin. I will continue these drugs tomorrow. Check Streptococcus pneumoniae and legionella urine antigens. Blood cultures collected. 3. Lactic acidosis. Likely in the setting of above presentation including loss of consciousness and infection. Repeat with a.m. labs. 4. Loss of consciousness as indicated above. Potentially in the setting of drug overdose versus K2 versus infection. Doubt cardiogenic source. Antibiotics as above and follow. Normal saline overnight for 1 L. 5. DVT prophylaxis, enoxaparin. [id number] #: [id number] [facility]
--- NOTE | 2017-11-30 15:41 | DS ---
AGAINST MEDICAL ADVICE DISCHARGE SUMMARY: DATE OF ADMISSION: 11/30/17 DATE OF DISCHARGE: 11/30/17 DISCHARGE DIAGNOSES: 1. Syncope. 2. Pneumonia. 3. Question of polysubstance abuse. DISCHARGE MEDICATIONS: 1. Tylenol 650 mg p.o. q.4 p.r.n. 2. Cyclobenzaprine 10 mg p.o. t.i.d. for 5 days as previously prescribed. 3. Ibuprofen 800 mg p.o. t.i.d. for 7 days. 4. Acidophilus bulgaricus 1 tab p.o. daily for 10 days. 5. Levaquin 750 mg p.o. daily for 5 days. 6. To continue his naproxen prescribed to him by his primary care physician along with previously prescribed medications by his PCP that were of limited prescription such as the ibuprofen and cyclobenzaprine. HISTORY OF PRESENT ILLNESS/HOSPITAL COURSE: The patient is a 37-year-old gentleman with history of polysubstance abuse who denied any previous history of coronary disease issues, asthma, arthritis but does report history of depression and substance abuse issues such as heroin and marijuana. He reported that his friend called EMS, given his friend was concerned that he had an overdose. Supposedly, the patient went to his neighbor's house and syncopized and EMS was called and Narcan was used which woke him up. However, the patient denied any drug nor any alcohol use today. In the ED, he was diagnosed to have pneumonia by a CT scan despite the chest x-ray being negative. A CTA was done which showed the pneumonia and did not show any significant PE. In the morning, I was called by nursing staff informing me the patient would like to go against medical advice. I have seen the patient myself and explained to him the potentially life threatening conditions such as neurologic , cardiac or any other conditions that are specific to his case that is yet to be found. He understands all the above issues. He was alert and oriented and competent and of sound mind when he decided to go against medical advice. This conversation was witnessed by the staff at [facility] [place] including our security staff. The nursing completion supervisor was present with me during my conversation with the patient. The patient was advised that he will be provided prescriptions to treat his pneumonia; however, this does not preclude that any other potentially life threatening conditions that has yet to be worked up exists and that includes the possible cardiac, lung or any neurological conditions and conditions yet to be found in his specific case as discussed. He is to take his medications as prescribed knowing that his workup is incomplete and to follow up with his PCP immediately and seek the nearest ER if he is unwell or feeling ill. PHYSICAL EXAMINATION: Physical examination shows the most recent vitals signs of temperature 97.5 degrees Fahrenheit, 78 beats per minute heart rate, respiratory rate 18, blood pressure 116/82. General Appearance: The patient is awake, alert and oriented x3, not in acute distress. Neurologic: The patient is able to move all extremities. The rest of the physical exam was not done given the patient was agitated and wants to leave and did not want to get examined any further and hence will defer. [id number] #: [id number] MTDD
--- NOTE | 2017-11-30 19:41 | ED ---
Xuan Castaneda Rebecca, scribed for Saad Milner MD on 11/29/17 at 2154 . Substance Abuse/Use - HPI Summary HPI Summary: Pt is a 37 y/o M who presents to ED due to concern of OD. Pt reports that his friend had called EMS as he was concerned about an overdose, which the pt denies. States that he was at his friend's house when he became tired and fell asleep. His friend did not use Narcan, though its use was initially questionable. Additionally c/o productive cough and intermittent SOB for the last few days. Denies edema, N/V, and abdominal pain. Pt denies any drug or alcohol use today, though the nurse reports that he had smoked K-2 earlier today. PMHx TBI pt states that he is at baseline. Negative PMHx asthma, SHx positive for cigarette use. - History Of Current Complaint Chief Complaint: EDOverdose Stated Complaint: OVERDOSE Hx Obtained From: Patient, Other: - Nurse Ingestion History: Type/Name Of Drug - K-2 Overdose Characteristics: Oral Severity Currently: None Associated Signs And Symptoms: Shortness Of Breath, Cough - Allergies/Home Medications Allergies/Adverse Reactions: Allergies Allergy/AdvReac Type Severity Reaction Status Date / Time No Known Allergies Allergy Verified 10/04/17 22:31 PMH/Surg Hx/FS Hx/Imm Hx Endocrine/Hematology History: Denies: Hx Blood Disorders Cardiovascular History: Denies: Hx Coronary Artery Disease Respiratory History: Denies: Hx Asthma Musculoskeletal History: Denies: Hx Arthritis Neurological History: Reports: Hx Seizures, 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 Denies: Hx Peripheral Neuropathy Psychiatric History: Reports: Hx Depression, Hx Substance Abuse - heroin, marijuana - Surgical History Surgery Procedure, Year, and Place: metal plates in bilateral lower jaw Infectious Disease History: No Infectious Disease History: Denies: Hx Clostridium Difficile, Hx Hepatitis, Hx Human Immunodeficiency Virus (HIV), Hx of Known/Suspected MRSA, Hx Shingles, Hx Tuberculosis, Hx Known/ Suspected VRE, Hx Known/Suspected VRSA, History Other Infectious Disease, Traveled Outside the [place] in Last 30 Days - Family History Known Family History: Negative: Cardiac Disease - Social History Alcohol Use: None Hx Substance Use: Yes Substance Use Type: Reports: None Substance Use Comment - Amount & Last Used: history of HEROINE, MARIJUANA AND COCAINE USE Hx Tobacco Use: Yes Smoking Status (MU): Current Every Day Smoker Type: Cigarettes Have You Smoked in the Last Year: Yes Review of Systems Positive: Shortness Of Breath, Cough Negative: Abdominal Pain, Vomiting, Nausea Negative: Edema Positive: Other - Concern of OD All Other Systems Reviewed And Are Negative: Yes Physical Exam - Summary Physical Exam Summary: Appearance: Well-appearing, Well-nourished, lying in bed comfortably Skin: Warm, dry, no obvious rash Eyes: sclera anicteric, no conjunctival pallor ENT: mucous membranes moist, pharynx appears normal Neck: Supple, nontender Respiratory: Clear to auscultation, no signs of respiratory distress Cardiovascular: Normal S1, S2. No murmurs. Normal distal pulses in tibial and radial bilaterally. Abdomen: Soft, nontender, normal active bowel sounds present Musculoskeletal: Normal, Strength/ROM Intact Neurological: A&Ox3, awake and alert, mentation is normal, speech is slurred which is consistent with history of TBI Psychiatric: affect is normal, does not appear anxious or depressed Triage Information Reviewed: Yes Vital Signs On Initial Exam: Initial Vitals Temp Pulse Resp BP Pulse Ox 97.1 F 88 18 123/76 87 11/29/17 21:35 11/29/17 21:35 11/29/17 21:35 11/29/17 21:35 11/29/17 21:35 Vital Signs Reviewed: Yes Diagnostics - Vital Signs Vital Signs Temp Pulse Resp BP Pulse Ox 11/29/17 21:35 97.1 F 88 18 123/76 87 - Laboratory Lab Results: Lab Results 11/29/17 11/29/17 11/29/17 Range/Units 22:22 22:22 22:22 WBC 13.9 H (3.5-10.8) 10^3/ul RBC 5.04 (4.0-5.4) 10^6/ul Hgb 15.2 (14.0-18.0) g/dl Hct 44 (42-52) % MCV 87 (80-94) fL MCH 30 (27-31) pg MCHC 35 (31-36) g/dl RDW 13 (10.5-15) % Plt Count 221 (150-450) 10^3/ul MPV 7.5 (7.4-10.4) um3 Neut % (Auto) 80.1 (38-83) % Lymph % (Auto) 10.3 L (25-47) % Sully % (Auto) 8.0 H (0-7) % Eos % (Auto) 1.1 (0-6) % Baso % (Auto) 0.5 (0-2) % Absolute Neuts (auto) 11.1 H (1.5-7.7) 10^3/ul Absolute Lymphs (auto) 1.4 (1.0-4.8) 10^3/ul Absolute Monos (auto) 1.1 H (0-0.8) 10^3/ul Absolute Eos (auto) 0.2 (0-0.6) 10^3/ul Absolute Basos (auto) 0.1 (0-0.2) 10^3/ul Absolute Nucleated RBC 0 10^3/ul Nucleated RBC % 0 D-Dimer, Quantitative (Less Than 230) ng/mL Sodium 136 L (139-145) mmol/L Potassium 3.2 L (3.5-5.0) mmol/L Chloride 97 L (101-111) mmol/L Carbon Dioxide 32 (22-32) mmol/L Anion Gap 7 (2-11) mmol/L BUN 7 (6-24) mg/dL Creatinine 1.00 (0.67-1.17) mg/dL Est GFR ( Amer) 109.4 (>60) Est GFR (Non-Af Amer) 85.0 (>60) BUN/Creatinine Ratio 7.0 L (8-20) Glucose 127 H (70-100) mg/dL Lactic Acid 2.3 H* (0.5-2.0) mmol/L Calcium 9.3 (8.6-10.3) mg/dL Total Bilirubin 0.90 (0.2-1.0) mg/dL AST 41 H (13-39) U/L ALT 27 (7-52) U/L Alkaline Phosphatase 42 (34-104) U/L Total Protein 6.4 (6.4-8.9) g/dL Albumin 4.1 (3.2-5.2) g/dL Globulin 2.3 (2-4) g/dL Albumin/Globulin Ratio 1.8 (1-3) 11/29/17 Range/Units 22:22 WBC (3.5-10.8) 10^3/ul RBC (4.0-5.4) 10^6/ul Hgb (14.0-18.0) g/dl Hct (42-52) % MCV (80-94) fL MCH (27-31) pg MCHC (31-36) g/dl RDW (10.5-15) % Plt Count (150-450) 10^3/ul MPV (7.4-10.4) um3 Neut % (Auto) (38-83) % Lymph % (Auto) (25-47) % Sully % (Auto) (0-7) % Eos % (Auto) (0-6) % Baso % (Auto) (0-2) % Absolute Neuts (auto) (1.5-7.7) 10^3/ul Absolute Lymphs (auto) (1.0-4.8) 10^3/ul Absolute Monos (auto) (0-0.8) 10^3/ul Absolute Eos (auto) (0-0.6) 10^3/ul Absolute Basos (auto) (0-0.2) 10^3/ul Absolute Nucleated RBC 10^3/ul Nucleated RBC % D-Dimer, Quantitative 388 H (Less Than 230) ng/mL Sodium (139-145) mmol/L Potassium (3.5-5.0) mmol/L Chloride (101-111) mmol/L Carbon Dioxide (22-32) mmol/L Anion Gap (2-11) mmol/L BUN (6-24) mg/dL Creatinine (0.67-1.17) mg/dL Est GFR ( Amer) (>60) Est GFR (Non-Af Amer) (>60) BUN/Creatinine Ratio (8-20) Glucose (70-100) mg/dL Lactic Acid (0.5-2.0) mmol/L Calcium (8.6-10.3) mg/dL Total Bilirubin (0.2-1.0) mg/dL AST (13-39) U/L ALT (7-52) U/L Alkaline Phosphatase (34-104) U/L Total Protein (6.4-8.9) g/dL Albumin (3.2-5.2) g/dL Globulin (2-4) g/dL Albumin/Globulin Ratio (1-3) Result Diagrams: 11/29/17 22:22 11/29/17 22:22 Lab Statement: Any lab studies that have been ordered have been reviewed, and results considered in the medical decision making process. - Radiology CXR Xray Interpretation: No Acute Changes - No radiographic evidence of acute cardiopulmonary disease. ED physician reviewed this radiology report. Radiology Interpretation Completed By: Radiologist - CT CTA Chest CT Interpretation Completed By: Radiologist - No large central pulmonary embolism. Moderate nonspecific right lower lobe perihilar masslike lung consolidation most likely due to pneumonia. Mild perihilar predominant pulmonary edema or pneumonia. This CT exam was performed using one or more of the following dose reduction techniques: automated exposure control, adjustment of the mA and/or kV according to patient size, use of iterative reconstruction technique. ED physician reviewed this report. - Additional Comments Diagnostic Additional Comments: EKG - Done at 2148 NSR at 81 BPM, P waves, QRS complex, and T waves are within normal limits, T waves and intervals are normal, no ischemic changes. This is a normal EKG. Re-Evaluation - Re-Evaluation First Eval Re-Evaluation Time: 22:56 Change: Unchanged Comment: Pt was put on a mask for low O2 sats. Will order a CT. Second Eval Re-Evaluation Time: 01:20 Comment: Pt is very lethargic, somnolent and sleeping, barely able to arouse for him to say that he is alright. Course/Dx - Diagnoses Differential Diagnosis/HQI/PQRI: Positive: Alcohol Abuse, Metabolic Disorder Provider Diagnoses: Pneumonia, TBI (traumatic brain injury) - Physician Notifications Discussed Care Of Patient With: Jose David Mejias Time Discussed With Above Provider: 01:27 Instructed by Provider To: Other - Accepts pt for admission. Discharge - Sign-Out/Discharge Documenting (check all that apply): Discharge/Admit/Transfer - Discharge Plan Condition: Guarded Disposition: ADMITTED TO [facility] - Billing Disposition and Condition Condition: GUARDED Disposition: [facility] The documentation as recorded by the Xuan zhu Rebecca accurately reflects the service I personally performed and the decisions made by me, Saad Milner MD.
[2017-11-30] MEDS ORDERED: Azithromycin IV(*) 250 MG in NS 0.9% 250 ML* 250 ML IVPB SCH (22:00)
[2017-11-30] MEDS ORDERED: cefTRIAXone(*) 1 GM in NS 0.9% 50 ML* 50 ML IVPB SCH (22:00)
== END 2017-11-30 08:06 | disposition left against medical advice (07) ==
LOC: ED 21:20 → MEDTELE 11-30 02:07
PROVIDERS: ADMIT Internal Medicine; ATTEND Student in an Organized Health Care Education/Training Program
DX: R55 Syncope and collapse (principal); J18.9 Pneumonia, unspecified organism; E87.2 Acidosis; F19.10 Other psychoactive substance abuse, uncomplicated; Z87.820 Personal history of traumatic brain injury; G40.909 Epilepsy, unspecified, not intractable, without status epilepticus; E03.9 Hypothyroidism, unspecified; Z79.899 Other long term (current) drug therapy; F17.210 Nicotine dependence, cigarettes, uncomplicated; R94.31 Abnormal electrocardiogram [ECG] [EKG]
CPT/HCPCS: 36415; 71046; 71275; 80053; 83605; 85025; 85379; 87040; 93005; 96365; 96367; 96372; 99284; G0378; J0456; J0696; J1650; Q9967

== ENCOUNTER 2017-12-11 11:33 | Emergency (ER) | payer OTHER ==
--- NOTE | 2017-12-11 12:23 | RAD ---
HISTORY: injury, left hand trauma COMPARISONS: February 21, 2015 VIEWS: 4, Frontal, lateral, and oblique views of the left hand FINDINGS: BONE DENSITY: Normal. BONES: There is a minimally displaced fracture of the base of the first metacarpal with articular extension. JOINTS: There is no arthropathy. ALIGNMENT: There is no dislocation. SOFT TISSUES: Unremarkable. OTHER FINDINGS: None. IMPRESSION: MINIMALLY DISPLACED FRACTURE OF THE BASE OF THE FIRST METACARPAL
--- NOTE | 2017-12-11 12:46 | ED ---
Upper Extremity Pain - HPI Summary HPI Summary: Patient is a 37-year-old male who presents emergency department for a left hand injury that occurred yesterday. Patient states he boxing with a friend when he accidentally punched a tree. No other injuries were sustained. Symptoms are mild in severity. Moving and touching him makes symptoms worse. Rest makes symptoms better. - History of Current Complaint Chief Complaint: EDUpperRespComplaint Stated Complaint: LT HAND SWELLING Time Seen by Provider: 12/11/17 11:39 Hx Obtained From: Patient - Allergies/Home Medications Allergies/Adverse Reactions: Allergies Allergy/AdvReac Type Severity Reaction Status Date / Time No Known Allergies Allergy Verified 10/04/17 22:31 Home Medications: Home Medications Acetaminophen TAB* [Tylenol TAB*] 650 mg PO Q6HR PRN MDD 4 12/11/17 [History Confirmed 12/11/17] Divalproex DR TAB(*) [Depakote DR(*)] 1,000 mg PO QPM 12/11/17 [History Confirmed 12/11/17] Divalproex DR TAB(*) [Depakote DR(*)] 500 mg PO QAM 12/11/17 [History Confirmed 12/11/17] Gabapentin CAP(*) [Neurontin 300 CAP(*)] 300 mg PO TID 12/11/17 [History Confirmed 12/11/17] Gabapentin CAP(*) [Neurontin 300 CAP(*)] 600 mg PO BEDTIME 12/11/17 [History Confirmed 12/11/17] Ibuprofen TAB* [Motrin TAB* 800 MG] 800 mg PO TID PRN 12/11/17 [History Confirmed 12/11/17] Levothyroxine TAB* [Synthroid TAB*] 100 mcg PO DAILY 12/11/17 [History Confirmed 12/11/17] QUEtiapine TAB* [Seroquel 300 MG TAB*] 300 mg PO BEDTIME 12/11/17 [History Confirmed 12/11/17] buPROPion SR TAB* [Wellbutrin SR TAB*] 150 mg PO BID 12/11/17 [History Confirmed 12/11/17] levETIRAcetam TAB* [Keppra TAB*] 500 mg PO BID 12/11/17 [History Confirmed 12/11] PMH/Surg Hx/FS Hx/Imm Hx Previously Healthy: Yes Endocrine/Hematology History: Reports: Hx Thyroid Disease Denies: Hx Blood Disorders, Hx Diabetes Cardiovascular History: Denies: Hx Coronary Artery Disease, Hx Hypertension Respiratory History: Reports: Hx Pneumonia - 11/30/17 Denies: Hx Asthma History: Denies: Hx Renal Disease Musculoskeletal History: Denies: Hx Arthritis Sensory History: Denies: Hx Contacts or Glasses, Hx Hearing Aid Opthamlomology History: Denies: Hx Contacts or Glasses Neurological History: Reports: Hx Seizures, 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 Denies: Hx Peripheral Neuropathy Psychiatric History: Reports: Hx Depression, Hx Substance Abuse - heroin, marijuana, Other Psychiatric Issues/Disorders - Polysubstance abuse - Surgical History Surgery Procedure, Year, and Place: metal plates in bilateral lower jaw Infectious Disease History: No Infectious Disease History: Denies: Hx Clostridium Difficile, Hx Hepatitis, Hx Human Immunodeficiency Virus (HIV), Hx of Known/Suspected MRSA, Hx Shingles, Hx Tuberculosis, Hx Known/ Suspected VRE, Hx Known/Suspected VRSA, History Other Infectious Disease, Traveled Outside the in Last 30 Days - Family History Known Family History: Negative: Cardiac Disease - Social History Occupation: Unemployed Lives: Alone Alcohol Use: None Hx Substance Use: Yes Substance Use Type: Reports: None Substance Use Comment - Amount & Last Used: history of HEROINE, MARIJUANA AND COCAINE USE Hx Tobacco Use: Yes Smoking Status (MU): Current Every Day Smoker Type: Cigarettes Have You Smoked in the Last Year: Yes Review of Systems Positive: Other - Pain, swelling and bruising to left hand All Other Systems Reviewed And Are Negative: Yes Physical Exam Triage Information Reviewed: Yes Vital Signs On Initial Exam: Initial Vitals Temp Pulse Resp BP Pulse Ox 97.7 F 114 15 133/88 96 12/11/17 11:34 12/11/17 11:34 12/11/17 11:34 12/11/17 11:34 12/11/17 11:34 Vital Signs Reviewed: Yes Appearance: Positive: Well-Appearing - Pt. sitting in bed in NAD. Agitated. Skin: Positive: Warm, Dry Head/Face: Positive: Normal Head/Face Inspection Eyes: Positive: Normal Neck: Positive: Supple Musculoskeletal: Positive: Other - Moderate edema and pain to the base of the left thumb. Ecchymosis over the thenar eminence. Superficial abrasions over MCP joint which pt. states are from a remote injury. Good palpable radial pulse. No overy lying erythema or increased warmth. Neurological: Positive: Normal, CN Intact II-III Psychiatric: Positive: Anxious Procedures - Splinting Left Upper Extremity Hand-Made Type: orthoglass Splint: thumb spica Pre-Proc Neuro Vasc Exam: normal Post-Proc Neuro Vasc Exam: normal Diagnostics - Vital Signs Vital Signs Temp Pulse Resp BP Pulse Ox 12/11/17 11:34 97.7 F 114 15 133/88 96 - Laboratory Lab Statement: Any lab studies that have been ordered have been reviewed, and results considered in the medical decision making process. Course/Dx - Course Course Of Treatment: Pt. presenting for a left hand injury after punching a tree yesterday. Hand xray shows a minimally displaced proximal 1st metacarpal fx , reading per radiolgoy. Hand was splinted. I called and made pt. an apt. for tomorrow at 10am with orthopedist, Dr. Pickard. Advised tylenol for pain as directed. Ice and elevate. To keep splint in placed. Pt. understands and agrees with plan. - Diagnoses Differential Diagnosis/HQI/PQRI: Positive: Contusion, Fracture (Closed), Strain , Sprain Provider Diagnoses: Metacarpal bone fracture Discharge - Sign-Out/Discharge Documenting (check all that apply): Discharge/Admit/Transfer - Discharge Plan Condition: Good Disposition: HOME Patient Education Materials: Hand Fracture (ED) Referrals: No Primary Care Phys,NOPCP [Primary Care Provider] - Radha Pickard MD [Medical Doctor] - Additional Instructions: Dr. Pickard will see you in her office tomorrow (12/12/17) at 10am Keep splint in place Ice and elevate Tylenol for pain as directed - Billing Disposition and Condition Condition: GOOD Disposition: Home
[2017-12-11 13:01] VITALS: BP 130/82
== END 2017-12-11 12:58 | disposition home or self-care (01) ==
LOC: ED 11:33
DX: S62.202A Unspecified fracture of first metacarpal bone, left hand, initial encounter for closed fracture (principal); E07.9 Disorder of thyroid, unspecified; F17.210 Nicotine dependence, cigarettes, uncomplicated; W22.8XXA Striking against or struck by other objects, initial encounter; Y92.9 Unspecified place or not applicable
CPT/HCPCS: 29125; 99282

== ENCOUNTER 2018-09-07 04:37 | Emergency (ER) | payer MEDICAID, OTHER ==
[2018-09-07] MEDS ORDERED: Ondansetron TAB* 4 MG PO ONE (06:20)
--- NOTE | 2018-09-07 06:21 | ED ---
Complex/Multi-Sys Presentation - HPI Summary HPI Summary: Pt. is a 38 y.o male who presents to the ER stating "I just don't feel right." Pt. is a poor historian. He states he has been feeling nauseous and having abdominal cramps over the last few days. Admits to dry cough. Denies CP, SOB, fever, diarrhea, dysuria, rash. Pt. appears very sleepy on exam and does not want to take blanket off of his head. Pt. denies drug or ETOH use tonight. Pt. does have a history of TBI, seizures, hypothyroidism, and drug abuse. Pt. states he lives in [place]. Sxs are mild in severity. No current modifying factors. - History Of Current Complaint Chief Complaint: EDGeneral Time Seen by Provider: 09/07/18 05:43 Hx Obtained From: Patient - Allergies/Home Medications Allergies/Adverse Reactions: Allergies Allergy/AdvReac Type Severity Reaction Status Date / Time No Known Allergies Allergy Verified 09/07/18 04:50 PMH/Surg Hx/FS Hx/Imm Hx Previously Healthy: Yes Endocrine/Hematology History: Reports: Hx Thyroid Disease Denies: Hx Blood Disorders, Hx Diabetes Cardiovascular History: Denies: Hx Coronary Artery Disease, Hx Hypertension, Hx Pacemaker/ICD Respiratory History: Reports: Hx Pneumonia - 11/30/17 Denies: Hx Asthma History: Denies: Hx Renal Disease Musculoskeletal History: Denies: Hx Arthritis Sensory History: Denies: Hx Contacts or Glasses, Hx Hearing Aid Opthamlomology History: Denies: Hx Contacts or Glasses Neurological History: Reports: Hx Seizures, 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 Denies: Hx Peripheral Neuropathy Psychiatric History: Reports: Hx Depression, Hx Substance Abuse - heroin, marijuana, Other Psychiatric Issues/Disorders - Polysubstance abuse Denies: Hx Panic Disorder - Surgical History Surgery Procedure, Year, and Place: metal plates in bilateral lower jaw Infectious Disease History: No Infectious Disease History: Denies: Hx Clostridium Difficile, Hx Hepatitis, Hx Human Immunodeficiency Virus (HIV), Hx of Known/Suspected MRSA, Hx Shingles, Hx Tuberculosis, Hx Known/ Suspected VRE, Hx Known/Suspected VRSA, History Other Infectious Disease, Traveled Outside the [place] in Last 30 Days - Family History Known Family History: Negative: Cardiac Disease - Social History Occupation: Unemployed Lives: Alone Alcohol Use: None Hx Substance Use: Yes Substance Use Type: Reports: None Substance Use Comment - Amount & Last Used: history of HEROINE, MARIJUANA AND COCAINE USE Hx Tobacco Use: Yes Smoking Status (MU): Current Every Day Smoker Type: Cigarettes Have You Smoked in the Last Year: Yes Review of Systems Constitutional: Negative Negative: Fever, Chills Eyes: Negative ENT: Negative Cardiovascular: Negative Negative: Palpitations, Chest Pain Positive: Cough. Negative: Shortness Of Breath Positive: Abdominal Pain, Nausea. Negative: Vomiting, Diarrhea Genitourinary: Negative Negative: burning Musculoskeletal: Negative Skin: Negative Neurological: Negative All Other Systems Reviewed And Are Negative: Yes Physical Exam Triage Information Reviewed: Yes Vital Signs On Initial Exam: Initial Vitals Temp Pulse Resp BP Pulse Ox 97.4 F 91 18 116/72 94 09/07/18 04:47 09/07/18 04:47 09/07/18 04:47 09/07/18 04:47 09/07/18 04:47 Vital Signs Reviewed: Yes Appearance: Positive: Well-Appearing - Pt. sleeping in bed in NAD. Easily arousable. Skin: Positive: Warm, Dry, Other - Superficial scratches to abdomen pt. states he obtained from falling on a table. Head/Face: Positive: Normal Head/Face Inspection Eyes: Positive: Normal, EOMI Neck: Positive: Supple, Nontender. Negative: Nuchal Rigidity Respiratory/Lung Sounds: Positive: Clear to Auscultation, Breath Sounds Present Cardiovascular: Positive: Normal, RRR. Negative: Murmur Abdomen Description: Positive: Nontender, Soft Musculoskeletal: Positive: Normal, Strength/ROM Intact Neurological: Positive: Normal, Alert, Oriented to Person Place, Time, CN Intact II-III Psychiatric: Positive: Patient Uncooperative for Exam - Erickson Coma Scale Best Eye Response: 4 - Spontaneous Best Motor Response: 6 - Obeys Commands Best Verbal Response: 5 - Oriented Coma Scale Total: 15 Diagnostics - Vital Signs Vital Signs Temp Pulse Resp BP Pulse Ox 09/07/18 05:01 92 142/119 98 09/07/18 05:00 91 99 09/07/18 04:47 97.4 F 91 18 116/72 94 - Laboratory Result Diagrams: 09/07/18 06:25 09/07/18 06:25 Lab Statement: Any lab studies that have been ordered have been reviewed, and results considered in the medical decision making process. Complex Multi-Symp Course/Dx Course Of Treatment: Pt. presenting with very vague complaints of not feeling well and nausea. He is afebrile with stable VS. He admits to mild cough. Pt. has no sign of injury other than superficial scratches to abd. He has benign abd. exam without pain. Will check basic labs, cxr and flu. Zofran and tylenol ordered. 0700: Pt. has been sleeping in ER in dark room. Pt. has declined xray and medication. I talked to pt. with nurse, Sami. Pt. states he did not deny xray or medications. Pt. continues to be uncooperative. Pt. refusing any further care at this time. Labs shows mild leukocytosis but otherwise unremarkable. Pt. notes he has been taking his seizure medictions regularly and has not had a seizure recently. Plan to dc home. Pt. states he needs more time to sleep. Pt. informed nurse that [place] and hasn't slept in a few days. Admits to THC use. Pt. ate sandwhich and is ambulatory to bathroom without difficulty. Pt. dc home. Close f.u with PCP and to return to ER if sxs change or worsen. - Diagnoses Provider Diagnoses: Sleep deprivation Discharge - Sign-Out/Discharge Documenting (check all that apply): Patient Departure Patient Received Moderate/Deep Sedation with Procedure: No - Discharge Plan Condition: Good Disposition: HOME Patient Education Materials: Acute Nausea and Vomiting (ED) Referrals: Akbar Pagan MD [Primary Care Provider] - Additional Instructions: Please call your PCP tomorrow for a close follow up appointment Continue home medications as directed Return to ER if symptoms change or worsen - Billing Disposition and Condition Condition: GOOD Disposition: Home
[2018-09-07] MEDS: Acetaminophen TAB* 325 MG PO ONE ×2 (06:29→06:32)
[2018-09-07 06:40] LABS: ABS Basophils 0 10^3/ul (0-0.2); ABS Eosinophils 0 10^3/ul (0-0.6); ABS Lymphocytes 1.5 10^3/ul (1.0-4.8); ABS Neutrophils 10.3 10^3/ul (1.5-7.7); ABS Nucleated RBC 0 10^3/ul; Eosinophil % 0.1 %; Hematocrit 42 % (42-52); Hemoglobin 14.2 g/dl (14.0-18.0); Lymphocyte % 11.6 %; Mean Corpuscular HGB Conc 34 g/dl (31-36); Mean Corpuscular Hemoglobin 29 pg (27-31); Mean Corpuscular Volume 87 fL (80-94); Mean Platelet Volume 7.9 fL (7.4-10.4); Nucleated Red Blood Cells % 0; Platelet Count 236 10^3/ul (150-450); Red Blood Count 4.84 10^6/ul (4.00-5.40); Red Cell Distribution Width 13 % (10.5-15); White Blood Count 12.9 10^3/ul (3.5-10.8)
[2018-09-07 06:44] LABS: Influenza A Molecular NEGATIVE (Negative); Influenza B Molecular NEGATIVE (Negative)
[2018-09-07 07:03] LABS: Albumin 4.1 g/dL (3.2-5.2); Albumin/Globulin Ratio 1.7 (1-3); Calcium 8.9 mg/dL (8.6-10.3); EGFR African American 142.6 (>60); EGFR Non-African American 117.8 (>60); Globulin 2.4 g/dL (2-4); Potassium 3.8 mmol/L (3.5-5.0); Total Bilirubin 1.1 mg/dL (0.2-1.0); Total Protein 6.5 g/dL (6.4-8.9)
[2018-09-07 07:19] LABS: TSH (Thyroid Stimulating Horm) 3.64 mcIU/mL (0.34-5.60)
[2018-09-07 09:06] VITALS: BP 110/69
== END 2018-09-07 08:50 | disposition home or self-care (01) ==
LOC: ED 04:37
DX: Z72.820 Sleep deprivation (principal); G40.909 Epilepsy, unspecified, not intractable, without status epilepticus; F32.9 Major depressive disorder, single episode, unspecified; F17.210 Nicotine dependence, cigarettes, uncomplicated
CPT/HCPCS: 36415; 80053; 83690; 84443; 85025; 99283; A9270-GY

== ENCOUNTER 2018-09-20 02:23 | Emergency (ER) | payer MEDICAID ==
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
[2018-09-20] MEDS ORDERED: Naproxen TAB* 250 MG PO ONE (02:38)
[2018-09-20 04:14] VITALS: BP 0/0
== END 2018-09-20 03:15 | disposition home or self-care (01) ==
LOC: ED 02:23
DX: S83.92XA Sprain of unspecified site of left knee, initial encounter (principal); M25.552 Pain in left hip; V17.4XXA Pedal cycle driver injured in collision with fixed or stationary object in traffic accident, initial encounter; Y93.55 Activity, bike riding; Y92.39 Other specified sports and athletic area as the place of occurrence of the external cause; Z76.5 Malingerer [conscious simulation]; R47.81 Slurred speech; Z87.820 Personal history of traumatic brain injury; F17.210 Nicotine dependence, cigarettes, uncomplicated
CPT/HCPCS: 99282; A9270-GY

== ENCOUNTER 2018-11-23 16:35 | Emergency (ER) | payer MEDICAID, OTHER ==
--- NOTE | 2018-11-23 17:01 | ED ---
Upper Extremity Pain - HPI Summary HPI Summary: A 38 y/o male presents to [facility] with a chief complaint of right wrist pain after falling on it a few days ago. He also reports that it has a tingling feeling. 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 - History of Current Complaint Chief Complaint: EDExtremityUpper Stated Complaint: "LEFT ARM PAIN PER PT" Time Seen by Provider: 11/23/18 16:51 Hx Obtained From: Patient Mechanism Of Injury: Other - fall onto his right hand Onset/Duration: Started Days Ago, Still Present Timing: Intermittent Severity Initially: Moderate Severity Currently: Moderate Pain Location: Wrist Character: Unable to Describe Aggravating Factor(s): Nothing Alleviating Factor(s): Nothing Associated Signs & Symptoms: Positive: Numbness/Tingling. Negative: Fever - Allergies/Home Medications Allergies/Adverse Reactions: Allergies Allergy/AdvReac Type Severity Reaction Status Date / Time No Known Allergies Allergy Verified 11/23/18 16:51 PMH/Surg Hx/FS Hx/Imm Hx Endocrine/Hematology History: Reports: Hx Thyroid Disease Denies: Hx Blood Disorders, Hx Diabetes Cardiovascular History: Denies: Hx Coronary Artery Disease, Hx Hypertension, Hx Pacemaker/ICD Respiratory History: Reports: Hx Pneumonia - 11/30/17 Denies: Hx Asthma History: Denies: Hx Renal Disease Musculoskeletal History: Denies: Hx Arthritis Sensory History: Denies: Hx Contacts or Glasses, Hx Hearing Aid Opthamlomology History: Denies: Hx Contacts or Glasses Neurological History: Reports: Hx Seizures, Other Neuro Impairments/Disorders - TBI w/ seizure, tremors, slurred speech Denies: Hx Peripheral Neuropathy Psychiatric History: Reports: Hx Depression, Hx Substance Abuse - heroin, marijuana, Other Psychiatric Issues/Disorders - Polysubstance abuse Denies: Hx Panic Disorder - Surgical History Surgery Procedure, Year, and Place: metal plates in bilateral lower jaw Infectious Disease History: No Infectious Disease History: Denies: Hx Clostridium Difficile, Hx Hepatitis, Hx Human Immunodeficiency Virus (HIV), Hx of Known/Suspected MRSA, Hx Shingles, Hx Tuberculosis, Hx Known/ Suspected VRE, Hx Known/Suspected VRSA, History Other Infectious Disease, Traveled Outside the [place] in Last 30 Days - Family History Known Family History: Negative: Cardiac Disease - Social History Alcohol Use: None Hx Substance Use: Yes Substance Use Type: Reports: Cocaine, Marijuana Substance Use Comment - Amount & Last Used: history of HEROINE, MARIJUANA AND COCAINE USE Hx Tobacco Use: Yes Smoking Status (MU): Current Every Day Smoker Type: Cigarettes Have You Smoked in the Last Year: Yes Review of Systems Negative: Fever Positive: Arthralgia - right wrist pain Positive: Paresthesia All Other Systems Reviewed And Are Negative: Yes Physical Exam - Summary Physical Exam Summary: VITAL SIGNS: Reviewed. GENERAL: Patient is a well-developed and nourished MALE who is lying comfortable in the stretcher. Patient is not in any acute respiratory distress. HEAD AND FACE: No signs of trauma. No ecchymosis, hematomas or skull depressions. No sinus tenderness. EYES: PERRLA, EOMI x 2, No injected conjunctiva, no nystagmus. EARS: Hearing grossly intact. Ear canals and tympanic membranes are within normal limits. MOUTH: Oropharynx within normal limits. NECK: Supple, trachea is midline, no adenopathy, no JVD, no carotid bruit, no c- spine tenderness, neck with full ROM. CHEST: Symmetric, no tenderness at palpation LUNGS: Clear to auscultation bilaterally. No wheezing or crackles. CVS: Regular rate and rhythm, S1 and S2 present, no murmurs or gallops appreciated. ABDOMEN: Soft, non-tender. No signs of distention. No rebound no guarding, and no masses palpated. Bowel sounds are normal. EXTREMITIES: healing abrasion right hand, TTP dorsal aspect of hand, neurovascularly intact. NEURO: Alert and oriented x 3. No acute neurological deficits. Speech is normal and follows commands. SKIN: Dry and warm. Triage Information Reviewed: Yes Vital Signs On Initial Exam: Initial Vitals Temp Pulse Resp BP Pulse Ox 99.1 F 100 18 121/90 99 11/23/18 16:36 11/23/18 16:36 11/23/18 16:36 11/23/18 16:36 11/23/18 16:36 Vital Signs Reviewed: Yes Diagnostics - Vital Signs Vital Signs Temp Pulse Resp BP Pulse Ox 11/23/18 16:36 99.1 F 100 18 121/90 99 - Laboratory Lab Statement: Any lab studies that have been ordered have been reviewed, and results considered in the medical decision making process. - Radiology wrist x-ray Radiology Interpretation Completed By: ED Physician Summary of Radiographic Findings: negative for fracture or dislocations. Pending official imaging report. hand x-ray Radiology Interpretation Completed By: ED Physician Summary of Radiographic Findings: negative for fracture or dislocations. pending official imaging report. Course/Dx - Course Assessment/Plan: A 38 y/o male presents to [facility] with a chief complaint of right wrist pain after falling on it a few days ago. He also reports that it has a tingling feeling. 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 X ray of hand and wrist impression: Negative for fracture or dislocations. Therefore the patient was discharged home with follow-up with primary care physician. The patient is hemodynamically stable alert oriented 3. - Diagnoses Provider Diagnoses: Hand pain Discharge - Sign-Out/Discharge Documenting (check all that apply): Patient Departure - DC Patient Received Moderate/Deep Sedation with Procedure: No - Discharge Plan Condition: Stable Disposition: HOME Referrals: Starr Brooks DO [Primary Care Provider] - (2-3 days) Additional Instructions: FOLLOW UP WITH YOUR PRIMARY CARE PROVIDER WITHIN ONE WEEK. RETURN TO THE ED FOR ANY WORSENING OR NEW SYMPTOMS. - Billing Disposition and Condition Condition: STABLE Disposition: Home - Attestation Statements Document Initiated by Kartik: Yes Documenting Ridgeibe: Yan Butts Provider For Whom Kartik is Documenting (Include Credential): Jeb Frey MD Scribe Attestation: Yan Castaneda scribed for Jeb Frey MD on 11/24/18 at 0814. Scribe Documentation Reviewed: Yes Provider Attestation: The documentation as recorded by the Yan zhu accurately reflects the service I personally performed and the decisions made by , Jeb Frey MD Status of Scribe Document: Viewed
[2018-11-23 17:53] VITALS: BP 121/96
== END 2018-11-23 17:52 | disposition home or self-care (01) ==
LOC: ED 16:35
DX: M25.531 Pain in right wrist (principal); M79.641 Pain in right hand; R20.2 Paresthesia of skin; R25.1 Tremor, unspecified; Z87.820 Personal history of traumatic brain injury; F17.210 Nicotine dependence, cigarettes, uncomplicated
CPT/HCPCS: 99281

== ENCOUNTER 2018-11-25 23:32 | Emergency (ER) | payer OTHER ==
--- NOTE | 2018-11-25 23:41 | ED ---
Back Pain - HPI Summary HPI Summary: This patient is a 38 year old male presenting to [facility] with a chief complaint of back pain since 3 hours ago. The patient states it is a sharp pain in his upper back. He says moving aggravates the pain. He states the pain radiates to his right side. He rates his pain 7/10 in severity. The patient states a family Hx of back problems. The patient denies fever and chills. Divalproex DR TAB(*) [Depakote DR TAB(*)] 500 mg PO QAM 12/11/17 [History Confirmed 11/23/18] Gabapentin CAP(*) [Neurontin 300 CAP(*)] 300 mg PO TID 12/11/17 [History Confirmed 11/23/18] Gabapentin CAP(*) [Neurontin 300 CAP(*)] 600 mg PO BEDTIME 12/11/17 [History Confirmed 11/23/18] Levothyroxine TAB* [Synthroid 100 MCG TAB*] 100 mcg PO DAILY 12/11/17 [History Confirmed 11/23/18] buPROPion SR TAB* [Wellbutrin SR TAB*] 150 mg PO BID 12/11/17 [History Confirmed 11/23/18] levETIRAcetam TAB* [Keppra TAB*] 500 mg PO BID 12/11/17 [History Confirmed 11/23] - History of Current Complaint Stated Complaint: "BACK PAIN" PER EMS Time Seen by Provider: 11/25/18 23:36 Hx Obtained From: Patient Onset/Duration: Lasting Hours Onset/Duration: Started Hours Ago Timing: Intermittent Severity Initially: Moderate Severity Currently: Moderate Pain Intensity: 7 Pain Scale Used: 0-10 Numeric Character: Sharp Aggravating Symptom(s): Movement - Allergies/Home Medications Allergies/Adverse Reactions: Allergies Allergy/AdvReac Type Severity Reaction Status Date / Time No Known Allergies Allergy Verified 11/23/18 16:51 Home Medications: Home Medications Buprenorphine HCl/Naloxone HCl [Suboxone 12 mg-3 mg Sl Film] 1 each PO BID 11/25 [History Confirmed 11/26/18] Divalproex Sodium 500 mg PO BEDTIME 11/25/18 [History Confirmed 11/26/18] PMH/Surg Hx/FS Hx/Imm Hx Endocrine/Hematology History: Reports: Hx Thyroid Disease Denies: Hx Blood Disorders, Hx Diabetes Cardiovascular History: Denies: Hx Coronary Artery Disease, Hx Hypertension, Hx Pacemaker/ICD Respiratory History: Reports: Hx Pneumonia - 11/30/17 Denies: Hx Asthma History: Denies: Hx Renal Disease Musculoskeletal History: Denies: Hx Arthritis Sensory History: Denies: Hx Contacts or Glasses, Hx Hearing Aid Opthamlomology History: Denies: Hx Contacts or Glasses Neurological History: Reports: Hx Seizures, Other Neuro Impairments/Disorders - TBI w/ seizure, tremors, slurred speech Denies: Hx Peripheral Neuropathy Psychiatric History: Reports: Hx Depression, Hx Substance Abuse - heroin, marijuana, Other Psychiatric Issues/Disorders - Polysubstance abuse Denies: Hx Panic Disorder - Surgical History Surgery Procedure, Year, and Place: metal plates in bilateral lower jaw Infectious Disease History: Denies: Hx Clostridium Difficile, Hx Hepatitis, Hx Human Immunodeficiency Virus (HIV), Hx of Known/Suspected MRSA, Hx Shingles, Hx Tuberculosis, Hx Known/ Suspected VRE, Hx Known/Suspected VRSA, History Other Infectious Disease - Family History Known Family History: Negative: Cardiac Disease - Social History Alcohol Use: None Hx Substance Use: Yes Substance Use Type: Reports: Cocaine, Heroin, Marijuana Substance Use Comment - Amount & Last Used: history of HEROINE, MARIJUANA AND COCAINE USE Hx Tobacco Use: Yes Smoking Status (MU): Current Every Day Smoker Type: Cigarettes Have You Smoked in the Last Year: Yes Review of Systems Negative: Fever, Chills Positive: Other - Back pain All Other Systems Reviewed And Are Negative: Yes Physical Exam - Summary Physical Exam Summary: Appearance: Well-appearing, Well-nourished, lying in bed comfortably Skin: Warm, dry, no obvious rash Eyes: sclera anicteric, no conjunctival pallor ENT: mucous membranes moist, pharynx appears normal Neck: Supple, nontender Respiratory: Clear to auscultation, no signs of respiratory distress Cardiovascular: Normal S1, S2. No murmurs. Normal distal pulses in tibial and radial bilaterally. Abdomen: Soft, nontender, normal active bowel sounds present Musculoskeletal: Normal, Strength/ROM Intact Neurological: A&Ox3, awake and alert, mentation is normal, speech is fluent and appropriate Psychiatric: affect is normal, does not appear anxious or depressed Triage Information Reviewed: Yes Vital Signs On Initial Exam: Temp Pulse Resp BP Pulse Ox 97.9 F 67 18 122/88 99 11/25/18 23:40 11/25/18 23:40 11/25/18 23:40 11/25/18 23:40 11/25/18 23:40 Vital Signs Reviewed: Yes Diagnostics - Laboratory Result Diagrams: 11/26/18 00:00 11/26/18 00:00 Lab Statement: Any lab studies that have been ordered have been reviewed, and results considered in the medical decision making process. - Radiology Thoracic Spine XR Radiology Interpretation Completed By: ED Physician Summary of Radiographic Findings: No acute process. Pending official radiologist report. Back Pain Course/Dx - Course Course Of Treatment: This patient is a 38 year old male presenting to [facility] with a chief complaint of back pain. Thoracic spine XR was unremarkable. A plan for discharge was discussed with the patient and he was agreeable with this plan. - Diagnoses Provider Diagnoses: Back pain Discharge - Sign-Out/Discharge Documenting (check all that apply): Patient Departure - Discharge Patient Received Moderate/Deep Sedation with Procedure: No - Discharge Plan Condition: Good Disposition: HOME Patient Education Materials: Back Pain (ED) Referrals: Starr Brooks, [Primary Care Provider] - 3 Days (if not better) Additional Instructions: The tests we ran tonight did not show any sign of a serious condition causing your pain, such as an infection of the spine. For now, take OTC pain killers like tylenol or advil, and contact your regular doctor if it is not starting to get better over the next few days. - Billing Disposition and Condition Condition: GOOD Disposition: Home - Attestation Statements Document Initiated by Kartik: Yes Documenting Scribe: Jose David Quintana Provider For Whom Kartik is Documenting (Include Credential): Saad Milner MD Scribe Attestation: IJose David, scribed for Saad Milner MD on 11/26/18 at 0505. Scribe Documentation Reviewed: Yes Provider Attestation: The documentation as recorded by the Jose David zhu accurately reflects the service I personally performed and the decisions made by me, Saad Milner MD Status of Scribwendi Document: Viewed
[2018-11-25] MEDS ORDERED: Ketorolac INJ* 30 MG/ML 1 ML VIAL IV PUSH ONE (23:43)
[2018-11-26 00:06] LABS: ABS Basophils 0.1 10^3/ul (0-0.2); ABS Eosinophils 0.3 10^3/ul (0-0.6); ABS Lymphocytes 2.2 10^3/ul (1.0-4.8); ABS Monocytes 0.9 10^3/ul (0-0.8); Eosinophil % 4.7 %; Hematocrit 43 % (42-52); Hemoglobin 14.8 g/dL (14.0-18.0); Lymphocyte % 28.8 %; Mean Corpuscular HGB Conc 34 g/dL (31-36); Mean Corpuscular Hemoglobin 29 pg (27-31); Mean Corpuscular Volume 86 fL (80-94); Mean Platelet Volume 7.6 fL (7.4-10.4); Platelet Count 293 10^3/uL (150-450); Red Blood Count 5.05 10^6 /uL (4.18-5.48); Red Cell Distribution Width 13 % (10.5-15); White Blood Count 7.5 10^3/uL (3.5-10.8)
[2018-11-26 00:23] LABS: Albumin 3.8 g/dL (3.2-5.2); Albumin/Globulin Ratio 1.4 (1-3); BUN/Creatinine Ratio 10.5 (8-20); C Reactive Protein 3.8 mg/L (<8.01); Calcium 9.4 mg/dL (8.6-10.3); EGFR African American 140.4 (>60); EGFR Non-African American 116.1 (>60); Globulin 2.7 g/dL (2-4); Potassium 4.9 mmol/L (3.5-5.0); Total Bilirubin 0.3 mg/dL (0.2-1.0); Total Protein 6.5 g/dL (6.4-8.9)
[2018-11-26 01:21] VITALS: BP 110/66
== END 2018-11-26 01:53 | disposition home or self-care (01) ==
LOC: ED 23:32
DX: M54.9 Dorsalgia, unspecified (principal); F17.210 Nicotine dependence, cigarettes, uncomplicated
CPT/HCPCS: 36415; 72070; 80053; 85025; 86140; 99283; J1885

== ENCOUNTER 2018-12-15 14:50 | Emergency (ER) | payer OTHER ==
[2018-12-15] MEDS ORDERED: oxyCODONE/Acetamin 5/325 MG* TAB PO ONE (17:54)
--- NOTE | 2018-12-15 18:05 | ED ---
Upper Extremity Pain - HPI Summary HPI Summary: 38-year-old male presents for pain medication today. He states that on was seen at [facility] and had an open humerus fracture. He was discharged from [facility] yesterday. They performed surgery on him but did not give him antibiotics. He states that he has prescription for Percocet but is unable to pick it up up due to issue with insurance. States he stopped heisSuboxone as told by [facility]. Denies any numbness or tingling. He still is able to close hand. He admits to increased swelling. Has had the same constant pain. - History of Current Complaint Chief Complaint: EDMedicationRefill Stated Complaint: ARM BANDAGE UNWRAPPED/NEEDS MEDS PER PT Time Seen by Provider: 12/15/18 17:37 - Allergies/Home Medications Allergies/Adverse Reactions: Allergies Allergy/AdvReac Type Severity Reaction Status Date / Time No Known Allergies Allergy Verified 12/15/18 15:07 PMH/Surg Hx/FS Hx/Imm Hx Endocrine/Hematology History: Reports: Hx Thyroid Disease Denies: Hx Blood Disorders, Hx Diabetes Cardiovascular History: Denies: Hx Coronary Artery Disease, Hx Hypertension, Hx Pacemaker/ICD Respiratory History: Reports: Hx Pneumonia - 11/30/17 Denies: Hx Asthma History: Denies: Hx Renal Disease Musculoskeletal History: Denies: Hx Arthritis Sensory History: Denies: Hx Contacts or Glasses, Hx Hearing Aid Opthamlomology History: Denies: Hx Contacts or Glasses Neurological History: Reports: Hx Seizures, Other Neuro Impairments/Disorders - TBI w/ seizure, tremors, slurred speech Denies: Hx Peripheral Neuropathy Psychiatric History: Reports: Hx Depression, Hx Substance Abuse - heroin, marijuana, Other Psychiatric Issues/Disorders - Polysubstance abuse Denies: Hx Panic Disorder - Surgical History Surgery Procedure, Year, and Place: metal plates in bilateral lower jaw Infectious Disease History: No Infectious Disease History: Denies: Hx Clostridium Difficile, Hx Hepatitis, Hx Human Immunodeficiency Virus (HIV), Hx of Known/Suspected MRSA, Hx Shingles, Hx Tuberculosis, Hx Known/ Suspected VRE, Hx Known/Suspected VRSA, History Other Infectious Disease, Traveled Outside the [place] in Last 30 Days - Family History Known Family History: Negative: Cardiac Disease - Social History Alcohol Use: None Hx Substance Use: Yes Substance Use Type: Reports: Marijuana Substance Use Comment - Amount & Last Used: history of HEROINE, MARIJUANA AND COCAINE USE Hx Tobacco Use: Yes Smoking Status (MU): Heavy Every Day Tobacco Smoker Type: Cigarettes Have You Smoked in the Last Year: Yes Review of Systems Negative: Fever Negative: Chest Pain Negative: Shortness Of Breath Positive: Myalgia - right arm pain All Other Systems Reviewed And Are Negative: Yes Physical Exam Triage Information Reviewed: Yes Vital Signs On Initial Exam: Initial Vitals Temp Pulse Resp BP Pulse Ox 97.6 F 93 20 154/101 96 12/15/18 15:02 12/15/18 15:02 12/15/18 15:02 12/15/18 15:02 12/15/18 15:02 Vital Signs Reviewed: Yes Appearance: Positive: Well-Appearing Skin: Positive: Warm, Dry Head/Face: Positive: Normal Head/Face Inspection Eyes: Positive: Normal, Conjunctiva Clear ENT: Positive: Pharynx normal Respiratory/Lung Sounds: Positive: Clear to Auscultation, Breath Sounds Present Cardiovascular: Positive: Normal, RRR Musculoskeletal: Positive: Limited @ - right arm, Edema Right - right arm, Other - good pulses, compartments soft, cast intact on left, able to squeeze wrists, capillary refill<2 secs, bandages present on upper arm Neurological: Positive: Normal Psychiatric: Positive: Normal Diagnostics - Vital Signs Vital Signs Temp Pulse Resp BP Pulse Ox 12/15/18 15:02 97.6 F 93 20 154/101 96 - Laboratory Lab Statement: Any lab studies that have been ordered have been reviewed, and results considered in the medical decision making process. Course/Dx - Course Course Of Treatment: 38-year-old male presents for pain medication today. He states that on was seen at [facility] and had an open humerus fracture. He was discharged from [facility] yesterday. They performed surgery on him but did not give him antibiotics. He states that he has prescription for Percocet but is unable to pick it up up due to issue with insurance. States he stopped heisSuboxone as told by [facility]. Denies any numbness or tingling. He still is able to close hand. He admits to increased swelling. Has had the same constant pain. On exam compartments are soft. He is able to squeeze hand. Edema noted to arm. Has bandages on arm that changed. Obtain records from [facility] but does not say anything about the care for arm except to follow-up. Gave a course of pain medication for tonight. told to follow up with [facility] about pain medication as prescribed by [facility]. will add on antibiotic as not currently on one. Patient understands agrees plan. - Diagnoses Differential Diagnosis/HQI/PQRI: Positive: Fracture (Closed), Strain, Other - compartment syndrome Provider Diagnoses: Humerus fracture, Request for narcotic pain medication Discharge - Sign-Out/Discharge Documenting (check all that apply): Patient Departure Patient Received Moderate/Deep Sedation with Procedure: No - Discharge Plan Condition: Good Disposition: HOME Prescriptions: Cephalexin CAP* [Keflex CAP*] 500 mg PO BID #10 cap Ibuprofen TAB* [Motrin TAB* 800 MG] 800 mg PO Q6H #20 tab Patient Education Materials: R.I.C.E. Treatment (ED) Referrals: Starr Brooks DO [Primary Care Provider] - Additional Instructions: elevate and ice extremity to reduce swelling you have been given a short course of pain medication for tonight, moss picker your script at [facility] Take ibuprofen every 6 hours as needed for pain take keflex twice a day for 5 days follow up with ortho as scheduled Return to ED if develop any new or worsening symptoms - Billing Disposition and Condition Condition: GOOD Disposition: Home
[2018-12-15 19:53] VITALS: BP 129/91
== END 2018-12-15 19:51 | disposition home or self-care (01) ==
LOC: ED 14:50
DX: S42.301D Unspecified fracture of shaft of humerus, right arm, subsequent encounter for fracture with routine healing (principal); X58.XXXD Exposure to other specified factors, subsequent encounter; F17.210 Nicotine dependence, cigarettes, uncomplicated
CPT/HCPCS: 99284; A9270-GY

== ENCOUNTER 2018-12-17 12:06 | Emergency (ER) | payer OTHER ==
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
[2018-12-17] MEDS: oxyCODONE/Acetamin 5/325 MG* TAB PO ONE (13:14)
[2018-12-17 14:46] VITALS: BP 132/93
== END 2018-12-17 14:44 | disposition home or self-care (01) ==
LOC: ED 12:06
DX: S42.301A Unspecified fracture of shaft of humerus, right arm, initial encounter for closed fracture (principal); V49.60XA Unspecified car occupant injured in collision with unspecified motor vehicles in traffic accident, initial encounter; F17.210 Nicotine dependence, cigarettes, uncomplicated
CPT/HCPCS: 99282; A9270-GY

== ENCOUNTER 2018-12-24 22:29 | Emergency (ER) | payer OTHER ==
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
[2018-12-25 01:52] VITALS: BP 0/0
== END 2018-12-25 01:51 | disposition home or self-care (01) ==
LOC: ED 22:29
DX: G89.28 Other chronic postprocedural pain (principal); F17.210 Nicotine dependence, cigarettes, uncomplicated
CPT/HCPCS: 99281

== ENCOUNTER → 2018-12-29 18:37 | Emergency (ER) | payer SELFPAY ==
[~2018-12-29 18:37] MED LIST: Metoclopramide IV* 5 MG/ML 2 ML VIAL IV SLOW PU ONE; Morphine 4 MG/ML VIAL (1 ml) 4 MG/ML VIAL IV ONE; NS 0.9% 1000 ML** 1,000 ML IV SCH
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
[2018-12-29 20:09] LABS: ABS Basophils 0.1 10^3/ul (0-0.2); ABS Eosinophils 0.1 10^3/ul (0-0.6); ABS Lymphocytes 1.4 10^3/ul (1.0-4.8); ABS Monocytes 1.3 10^3/ul (0-0.8); ABS Neutrophils 7.2 10^3/ul (1.5-7.7); Eosinophil % 0.9 %; Hematocrit 34 % (42-52); Hemoglobin 11.6 g/dL (14.0-18.0); Lymphocyte % 13.6 %; Mean Corpuscular HGB Conc 35 g/dL (31-36); Mean Corpuscular Hemoglobin 29 pg (27-31); Mean Corpuscular Volume 83 fL (80-94); Mean Platelet Volume 7.1 fL (7.4-10.4); Nucleated Red Blood Cells % 0.1; Platelet Count 449 10^3/uL (150-450); Red Blood Count 4.03 10^6 /uL (4.18-5.48); Red Cell Distribution Width 13 % (10-15); White Blood Count 9.9 10^3/uL (3.5-10.8)
[2018-12-29 20:17] LABS: INR 1.08 (0.82-1.09)
[2018-12-29 20:25] LABS: Albumin 3.6 g/dL (3.2-5.2); Albumin/Globulin Ratio 1.1 (1-3); BUN/Creatinine Ratio 23.3 (8-20); EGFR African American 184.5 (>60); EGFR Non-African American 152.4 (>60); Globulin 3.4 g/dL (2-4); Potassium 4.4 mmol/L (3.5-5.0); Total Bilirubin 0.4 mg/dL (0.2-1.0)
[2018-12-29 22:51] VITALS: BP 128/84
== END | disposition short-term general hospital (02) ==
LOC: ED 18:37
DX: L76.22 Postprocedural hemorrhage of skin and subcutaneous tissue following other procedure (principal); S42.401A Unspecified fracture of lower end of right humerus, initial encounter for closed fracture; V59.9XXA Occupant (driver) (passenger) of pick-up truck or van injured in unspecified traffic accident, initial encounter; F17.210 Nicotine dependence, cigarettes, uncomplicated
CPT/HCPCS: 36415; 80053; 82550; 85025; 85610; 85730; 86850; 86900; 86901; 96374; 96375; 99285; J2270; J2765

== ENCOUNTER 2019-01-18 12:59 | Emergency (ER) | payer MEDICAID, OTHER ==
[2019-01-18 13:10] VITALS: BP 118/84
[2019-01-18] MEDS ORDERED: Lidocaine/Epineph/Tetraca GEL* 3 ML GEL IN SYR TOPICAL ONE (13:20)
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
== END 2019-01-18 13:50 | disposition home or self-care (01) ==
LOC: UCEAST 12:59
DX: Z48.00 Encounter for change or removal of nonsurgical wound dressing (principal); E03.9 Hypothyroidism, unspecified; F17.210 Nicotine dependence, cigarettes, uncomplicated
CPT/HCPCS: 99211; A9270-GY; G0463

== ENCOUNTER 2019-07-05 15:57 | Emergency (ER) | payer MEDICAID, OTHER ==
[2019-07-05] MEDS ORDERED: Ketorolac *IM* INJ* 60 MG/2 ML VIAL IM ONE (16:16)
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
[2019-07-05 18:20] VITALS: BP 102/85
== END 2019-07-05 18:24 | disposition home or self-care (01) ==
LOC: ED 15:57
DX: M54.6 Pain in thoracic spine (principal); R07.81 Pleurodynia; R47.81 Slurred speech; R25.1 Tremor, unspecified; Z87.820 Personal history of traumatic brain injury; F17.210 Nicotine dependence, cigarettes, uncomplicated
CPT/HCPCS: 74176; 96372; 99282; J1885